=== PATIENT | male | born 1950 | race Caucasian/White ===

== ENCOUNTER 2017-07-02 15:49 | Inpatient (IN) | payer MEDICARE, OTHER ==
[~2017-07-02] VITALS: Ht 167.6 cm; Wt 90.3 kg
--- NOTE | 2017-07-02 00:16 | NUR ---
PRASHANTH CAMPOS NOTES PATIENTS BP CHECKED, NOTED TO BE 161/ 86. PRN HYDRALAZINE 25 MG PO GIVEN. TOLERATED WELL. NO C/O N/V & CHEST PAIN NOTED. WILL RECHECK BP AGAIN. OBSERVING CLOSELY. Addendum: 07/03/17 at 0416 by BENJAMIN BARNETT RN DISREGARD THIS NOTE, WRONG DATE ENTRY.
[~2017-07-02 15:49] MED LIST: ATOR10TA PO; CARV12.52 PO; CLOP75TA2 PO; DOCU-270 PO; HYDR-4076 PO; LOSA50TA21 PO; MECL-102 PO; METF500T4 PO; METO5TAB87 PO; OMEP40CA37 PO; SITA50TA PO; TIOT18CA3 IH
--- NOTE | 2017-07-02 15:55 | NUR ---
AAOX3, [id number] FROM HOME: CHEST PAIN, ABDOMINAL PAIN. NITRO x 3, ASA 325 GIVEN IN FIELD BY EMS. SKIN IS WARM AND DRY. CHEST PAIN RESOLVED DURING ASSESSMENT. RR IS EVEN AND UNLABORED WITH NAD NOTED. PLACED ON MONITOR. WILL CONTIUOUSLY MONITOR THE PATIENT. AWAITING MD FOR EVAL.
[2017-07-02] MEDS ORDERED: MORPHINE SULFATE INJ 4 MG/ML DISP.SYRIN ONE (16:04)
[2017-07-02] MEDS ORDERED: ONDANSETRON HCL/PF 4 MG/2 ML VIAL ONE (16:04)
--- NOTE | 2017-07-02 16:05 | NUR ---
VERBALLY ORDERED BY DR OTT MORPHINE 4MG AND ZOFRAN 4MG IVP R HAND GIVEN.
[2017-07-02 16:09] LABS: BASOPHILS # (AUTO) 0.1 /CMM (0.0-0.2); BASOPHILS % (AUTO) 0.6 % (0.0-2.0); EOSINOPHILS # (AUTO) 0.1 /CMM (0.0-0.7); EOSINOPHILS % (AUTO) 1.5 % (0.0-6.0); HEMATOCRIT 40 % (39-51); LYMPHOCYTES # (AUTO) 1.3 /CMM (0.8-4.8); LYMPHOCYTES % (AUTO) 15.9 % (20.0-44.0); MEAN CORPUSCULAR HEMOGLOBIN 25 PG (26.0-33.0); MEAN CORPUSCULAR HGB CONC 33 g/dl (31.0-36.0); MEAN CORPUSCULAR VOLUME 77 fL (80-96); MONOCYTES # (AUTO) 0.7 /CMM (0.1-1.30); MONOCYTES % (AUTO) 7.7 % (2.0-12.0); NEUTROPHILS # (AUTO) 6.3 /CMM (1.8-8.9); NEUTROPHILS % (AUTO) 74.3 % (43.0-81.0); PLATELET COUNT (AUTO) 185 /CMM (150-450); RDW COEFFICIENT OF VARIATION 15.7 (11.5-15.0); RED BLOOD CELL COUNT(AUTO) 5.15 MIL/uL (4.5-6.0); WHITE BLOOD COUNT (AUTO) 8.5 K/uL (4.3-11.0)
[2017-07-02] MEDS ORDERED: MORPHINE SULFATE INJ 2 MG/ML DISP.SYRIN IV ONE ×2 (16:30→17:30)
[2017-07-02] MEDS ORDERED: ONDANSETRON HCL/PF - ER 4 MG/2 ML VIAL IV ONE (16:30)
[2017-07-02 16:32] LABS: CALCIUM, SERUM 9.5 mg/dL (8.5-10.1); CREATININE 1.5 mg/dL (0.6-1.3); POTASSIUM 4.2 mmol/L (3.5-5.1)
[2017-07-02 16:36] LABS: INR 0.95 (0.87-1.13); PROTHROMBIN TIME 9.9 SECS (9.5-12.7)
[2017-07-02 16:40] LABS: TROPONIN I 0.039 ng/mL (0.00-0.056)
[2017-07-02 16:48] LABS: ALBUMIN 3.9 g/dL (3.4-5.0); BILIRUBIN,DIRECT 0.1 mg/dL (0.0-0.2); BILIRUBIN,TOTAL 0.4 mg/dL (0.2-1.0); TOTAL PROTEIN, SERUM 7.4 g/dL (6.4-8.2)
[2017-07-02] MEDS ORDERED: ASPI-991 PO (17:11)
[2017-07-02] MEDS ORDERED: ACET1TAB12 PO (17:11)
[2017-07-02] MEDS ORDERED: FOLI0.8T23 PO (17:11)
[2017-07-02] MEDS ORDERED: NATE60TA PO (17:11)
[2017-07-02] MEDS ORDERED: MORPHINE SULFATE INJ 10 MG/ML DISP.SYRIN ONE (17:21)
[2017-07-02] MEDS ORDERED: IV NS 0.9% 250 ML IV ONE (17:26)
[2017-07-02] MEDS ORDERED: IOHEXOL-350 100 ML VIAL IV ONE (17:26)
[2017-07-02] MEDS ORDERED: IV NS 0.9% 500 ML BAG IV ONE (17:30)
--- NOTE | 2017-07-02 17:30 | NUR ---
LIVE OUT NANNYMARKETING ADMINISTRATOR NOTES RECEIVED PATIENT FROM ER ON A GURNEY ACCOMPANIED BY 2 NURSES. A & O X 4, TALKATIVE, SPEAKS EQUATORIAL [place] & LITTLE [place]. ABLE TO VERBALIZE HIS NEEDS .ASSISTED TO BED. VS CHECKED & DOCUMENTED. NO SOB, NO PALPITATIONS, DENIED ANY CHEST PAIN AT THIS TIME, BUT C/O ABDOMINAL PAIN. LAST MORPHINE 6 MG WAS GIVEN IN ER ABOUT 2 HRS AGO. ASSISTED WITH POSITIONING IN BED TO MINIMIZE THE PAIN & WAS EFFECTIVE WHILE LAYING ON RIGHT SIDE OF HIS BODY. IV ACCESS TO RIGHT HAND & RAC, INTACT PATENT. NO S/S OF INFECTION NOTED AT IV SITE. ON O2 AT 2LPM VIA NC, IN MODERATE SEMI CASTELAN POSITION. MILD NAUSEA NOTED UPON ADMISSION BUT SUBSIDED WITH POSITIONING TO HIS SIDE. BODY ASSESSMENT DONE, NO SKIN CONCERNS NOTED. ORIENTED PT TO THE UNIT & USE OF CALL LIGHT. ON TELE MONITORING WITH A PACING HEART RATE 66/MINUTE. HAS LEFT CHEST WALL PACEMAKER. INVENTORY BELONGINGS COMPLETED BY GROUNDSKEEPER SUPERVISOR. SAFETY PRECAUTIONS FOR FALL INITIATED. BED IN LOW LOCKED POSITION WITH X2 SIDE RAILS UP. CALL LIGHT WITHIN REACH. WILL CONTINUE TO MONITOR. Addendum: 07/03/17 at 0001 by BENJAMIN BARNETT RN WRONG TIME DOCUMENTED
--- NOTE | 2017-07-02 19:19 | NUR ---
ASSUMED CARE. RECEIVED REPORT FROM AM SHIFT BETH HERNANDEZ. ER MD SPOKE TO DR. MORELAND REGARDING PT ADMISSION. REPORT CALLED TO DIVISION MERCHANDISE MANAGERBETH ALEXANDER. WILL TRANSPORT PT VIA ACLS PROTOCOL.
[2017-07-02 19:30] VITALS: BP 180/93
[2017-07-02] MEDS ORDERED: DEXTROSE 50%-WATER 50 ML DISP.SYRIN IV PRN (19:30)
[2017-07-02] MEDS ORDERED: hydrALAZINE HCL 25 MG TABLET PO PRN (19:30)
[2017-07-02] MEDS ORDERED: MECLIZINE HCL 25 MG TABLET PO PRN (19:30)
[2017-07-02] MEDS ORDERED: MAGNESIUM HYDROXIDE 30 ML UDC PO PRN (19:30)
[2017-07-02] MEDS ORDERED: HYDROCODONE/APAP 10/325MG 1 EA TABLET PO PRN (19:30)
[2017-07-02] MEDS ORDERED: ZOLPIDEM TARTRATE 5 MG TABLET PO PRN (19:30)
[2017-07-02] MEDS ORDERED: ONDANSETRON HCL/PF 4 MG/2 ML VIAL IVP PRN (19:30)
[2017-07-02] MEDS ORDERED: ACETAMINOPHEN 325 MG TABLET PO PRN (19:30)
[2017-07-02] MEDS ORDERED: hydrALAZINE HCL IV 20 MG VIAL IV PRN (19:30)
[2017-07-02] MEDS ORDERED: HYDROCODONE/APAP 5/325MG 1 EACH TABLET PO PRN (19:30)
[2017-07-02] MEDS ORDERED: MAG HYDROX/AL HYDROX/SIMETH 30 ML UDC PO PRN (19:30)
--- NOTE | 2017-07-02 19:30 | NUR ---
REPRESENTATIVENAIL CUTTER NOTES RECEIVED PATIENT FROM ER ON A GURNEY ACCOMPANIED BY 2 NURSES. A & O X 4, TALKATIVE, SPEAKS [place] & LITTLE FRENCH. ABLE TO VERBALIZE HIS NEEDS .ASSISTED TO BED. VS CHECKED & DOCUMENTED. NO SOB, NO PALPITATIONS, DENIED ANY CHEST PAIN AT THIS TIME, BUT C/O ABDOMINAL PAIN. LAST MORPHINE 6 MG WAS GIVEN IN ER ABOUT 2 HRS AGO. ASSISTED WITH POSITIONING IN BED TO MINIMIZE THE PAIN & WAS EFFECTIVE WHILE LAYING ON RIGHT SIDE OF HIS BODY. IV ACCESS TO RIGHT HAND & RAC, INTACT PATENT. NO S/S OF INFECTION NOTED AT IV SITE. ON O2 AT 2LPM VIA NC, IN MODERATE SEMI CASTELAN POSITION. MILD NAUSEA NOTED UPON ADMISSION BUT SUBSIDED WITH POSITIONING TO HIS SIDE. BODY ASSESSMENT DONE, NO SKIN CONCERNS NOTED. ORIENTED PT TO THE UNIT & USE OF CALL LIGHT. ON TELE MONITORING WITH A PACING HEART RATE 66/MINUTE. HAS LEFT CHEST WALL PACEMAKER. INVENTORY BELONGINGS COMPLETED BY GENERAL LABOR. SAFETY PRECAUTIONS FOR FALL INITIATED. BED IN LOW LOCKED POSITION WITH X2 SIDE RAILS UP. CALL LIGHT WITHIN REACH. WILL CONTINUE TO MONITOR.
[2017-07-02 20:30] VITALS: BP 158/76
[2017-07-02 20:43] VITALS: BP 183/93
[2017-07-02] MEDS: CARVEDILOL 12.5 MG TABLET PO SCH (20:56)
[2017-07-02] MEDS: ENOXAPARIN SODIUM 100 MG/ML DISP.SYRIN SQ SCH (20:59)
[2017-07-02] MEDS: ATORVASTATIN 10 MG TABLET PO SCH (21:03)
[2017-07-02] MEDS: NITROGLYCERIN 30 GM TUBE TOP SCH (21:04)
[2017-07-02] MEDS: BLOOD SUGAR DIAGNOSTIC 1 EACH STRIP VI SCH (21:13)
[2017-07-02] MEDS: INSULIN REGULAR, HUMAN 100 UNIT/ML 3 ML VIAL SQ PRN (21:21)
[2017-07-02] MEDS: *INSULIN REGULAR(HUMULIN R)HUM 100 UNIT/ML VIAL SQ PRN (21:26)
[2017-07-02] MEDS: MORPHINE SULFATE INJ 2 MG/ML DISP.SYRIN IV PRN (22:24)
--- NOTE | 2017-07-02 23:01 | NUR ---
FELLING BUCKING SUPERVISOR NOTE DR. MORELAND VISITED THE PATIENT, DID H & P & DECIDED TO CALL THE DAUGHTER TO DISCUSS PLAN OF CARE.
[2017-07-03] VITALS (10 sets, daily range): BP systolic 132–161; BP diastolic 68–86
--- NOTE | 2017-07-03 00:16 | NUR ---
DRAWING IN HAND NOTES PATIENTS BP CHECKED, NOTED TO BE 161/ 86. PRN HYDRALAZINE 25 MG PO GIVEN. TOLERATED WELL. NO C/O N/V & CHEST PAIN NOTED. WILL RECHECK BP AGAIN. OBSERVING CLOSELY.
--- NOTE | 2017-07-03 01:15 | NUR ---
ICE CREAM MACHINE OPERATOR NOTES RECHECKED BP, 156/80. PATIENT SLEEPING INTERMITTENTLY. NO C/O N/V & NO CHEST PAIN. HAS MILD ABDOMINAL PAIN BUT TOLERABLE. INFORMED THE PATIENT TO LET THE NURSE KNOW IF PAIN MEDICINE NEEDED & PT VERBALIZED UNDERSTANDING. WILL CONTINUE TO MONITOR CLOSELY.
[2017-07-03] MEDS: NITROGLYCERIN 30 GM TUBE TOP SCH ×3 (05:18→21:24)
[2017-07-03 06:30] LABS: BASOPHILS % (AUTO) 0.2 % (0.0-2.0); EOSINOPHILS % (AUTO) 0.4 % (0.0-6.0); HEMATOCRIT 39 % (39-51); HEMOGLOBIN 12.7 g/dL (13.5-17.5); LYMPHOCYTES # (AUTO) 1.3 /CMM (0.8-4.8); LYMPHOCYTES % (AUTO) 12.8 % (20.0-44.0); MEAN CORPUSCULAR HEMOGLOBIN 26 PG (26.0-33.0); MEAN CORPUSCULAR HGB CONC 33 g/dl (31.0-36.0); MEAN CORPUSCULAR VOLUME 78 fL (80-96); MONOCYTES # (AUTO) 0.6 /CMM (0.1-1.30); NEUTROPHILS # (AUTO) 8.1 /CMM (1.8-8.9); NEUTROPHILS % (AUTO) 80.6 % (43.0-81.0); PLATELET COUNT (AUTO) 167 /CMM (150-450); RDW COEFFICIENT OF VARIATION 16.9 (11.5-15.0); RED BLOOD CELL COUNT(AUTO) 4.99 MIL/uL (4.5-6.0); WHITE BLOOD COUNT (AUTO) 10.1 K/uL (4.3-11.0)
[2017-07-03] MEDS: BLOOD SUGAR DIAGNOSTIC 1 EACH STRIP VI SCH ×4 (06:32→21:55)
[2017-07-03] MEDS: INSULIN REGULAR, HUMAN 100 UNIT/ML 3 ML VIAL SQ PRN ×3 (06:34→18:01)
[2017-07-03 06:49] LABS: CALCIUM, SERUM 8.9 mg/dL (8.5-10.1); CARBON DIOXIDE 24 mmol/L (21-32); CHLORIDE 104 mmol/L (98-107); CREATININE 1.4 mg/dL (0.6-1.3); GLUCOSE 165 mg/dL (74-106); MAGNESIUM 1.8 mg/dL (1.8-2.4); PHOSPHORUS 4.1 mg/dL (2.5-4.9); POTASSIUM 4.2 mmol/L (3.5-5.1); SODIUM SERUM 138 mmol/L (136-145); UREA NITROGEN, BLOOD 14 mg/dL (7-18)
[2017-07-03 06:58] LABS: CHOLESTEROL 144 mg/dL (<200); LDL 89 mg/dL (0-99); TRIGLYCERIDES 145 mg/dL (30-150)
[2017-07-03 07:00] LABS: HDL CHOLESTEROL < 10 mg/dL (40-60)
--- NOTE | 2017-07-03 07:17 | NUR ---
WELDING PANTOGRAPH OPERATOR CLOSING NOTES PATIENT SLEPT INTERMITTENTLY. ASSESSED FOR PAIN & STATED THAT ABDOMINAL PAIN GOT BETTER, BUT WHILE CHANGING POSITION, PAIN COMES BACK. NO SOB, NO ACUTE DISTRESS NOTED. ON O2 VIA NC @ 2LPM. IN MODERATE SEMI CASTELAN POSITION FOR EASY BREATHING. IV ACCESS TO R HAND & RAC, INTACT PATENT. NO CHEST PAIN NOTED. SIDE RAILS UP X 2. ASSISTED WITH ADL CARE. ALL NEEDS ATTENDED TO & MET. ON TELE MONITORING WITH A PACING AT 68. BED IN LOW LOCKED POSITION. CALL LIGHT WITHIN REACH. CONTINENT OF B & BM. ABLE TO MAKE NEEDS KNOWN. ENDORSED TO AM SHIFT NURSE.
--- NOTE | 2017-07-03 07:30 | NUR ---
STAFFING SPECIALIST OPENING NOTES RECEIVED PATIENT IN BED RESTING, A/O X4, SYRIAC SPEAKING. NO ACUTE DISTRESS, NO SOB NOTED. COMPLAINS OF ABDOMINAL PAIN 9/10 SHARP, PAIN MEDS GIVEN ORDERED. IV SITE INTACT AND PATENT. DR DESAI AT BEDSIDE TALKING TO PATIENT. KEPT PATIENT SAFE AND COMFORTABLE. BED IN LOW POSITION, LOCKED, SIDERAILS UPX2. CALL LIGHT WITHIN REACH. WILL CONTINUE TO MONITOR ACCORDINGLY.
[2017-07-03] MEDS: MORPHINE SULFATE INJ 2 MG/ML DISP.SYRIN IV PRN ×2 (07:35→23:45)
[2017-07-03] MEDS: IPRATROPIUM NEB FS 0.5 MG/2.5 ML AMPUL.NEB NEB SCH ×3 (07:50→20:35)
[2017-07-03 08:09] LABS: TROPONIN I 0.029 ng/mL (0.00-0.056)
[2017-07-03 08:12] LABS: THYROID STIMULATING HORMONE 2.269 uIU/mL (0.358-3.74)
[2017-07-03] MEDS ORDERED: TIOTROPIUM BROMIDE 6 CAP/BOX CAP.W.DEV IH SCH (09:00)
[2017-07-03] MEDS: DOCUSATE SODIUM 100 MG CAPSULE PO SCH (09:59)
[2017-07-03] MEDS: ASPIRIN EC 81 MG TABLET.DR PO SCH (09:59)
[2017-07-03] MEDS: PANTOPRAZOLE 40 MG TABLET.DR PO SCH (10:00)
[2017-07-03] MEDS: CARVEDILOL 12.5 MG TABLET PO SCH ×2 (10:04→21:25)
[2017-07-03] MEDS: LOSARTAN POTASSIUM 50 MG TABLET PO SCH (10:05)
[2017-07-03] MEDS: ENOXAPARIN SODIUM 100 MG/ML DISP.SYRIN SQ SCH ×2 (10:08→21:26)
--- NOTE | 2017-07-03 19:30 | NUR ---
RN NOTES RECEIVED PATIENT IN BED AWAKE, AO X 3, ABLE TO MAKE NEEDS KNOWN. NO ACUTE DISTRESS NOTED. DENIES ANY PAIN AT THIS TIME. IV SITE PATENT, INTACT; FLUSHED. SAFETY REMINDERS GIVEN. ON LOW BED WITH BILATERAL UPPER SIDE RAILS UP. CALL LIGHT WITHIN EASY REACH. WILL CONTINUE TO MONITOR.
--- NOTE | 2017-07-03 19:30 | NUR ---
RN CLOSING NOTES NO CHANGE IN PATIENT'S CONDITION. NO ACUTE DISTRESS, NO SOB NOTED. ALL NEEDS ATTENDED AND PROVIDED. KEPT PATIENT SAFE AND COMFORTABLE. BED IN LOW POSITION, LOCKED, SIDERAILS UP X2. CALL LIGHT WITHIN REACH. ENDORSED TO NIGHT RN FOR EB.
[2017-07-03] MEDS: ATORVASTATIN 10 MG TABLET PO SCH (21:24)
[2017-07-03] MEDS: *INSULIN REGULAR(HUMULIN R)HUM 100 UNIT/ML VIAL SQ PRN (21:26)
[2017-07-04] MEDS: IPRATROPIUM NEB FS 0.5 MG/2.5 ML AMPUL.NEB NEB SCH ×4 (01:30→19:29)
[2017-07-04] MEDS: NITROGLYCERIN 30 GM TUBE TOP SCH ×3 (05:35→21:10)
--- NOTE | 2017-07-04 06:04 | NUR ---
RN NOTES PATIENT ASLEEP, EASILY AROUSABLE. RESPIRATIONS EVEN. NO SIGNS OF PAIN NOTED. DUE MEDS GIVEN WITH NO ASE NOTED. NEEDS ATTENDED. NO SYMPTOMS OF HYPER/HYPOGLYCEMIA. SAFETY PRECAUTIONS AND COMFORT MEASURES IN PLACE. WILL GIVE REPORT TO DAY SHIFT FOR CONTINUITY OF CARE.
[2017-07-04] MEDS: BLOOD SUGAR DIAGNOSTIC 1 EACH STRIP VI SCH ×4 (06:30→21:10)
[2017-07-04] MEDS: INSULIN REGULAR, HUMAN 100 UNIT/ML 3 ML VIAL SQ PRN (06:32)
[2017-07-04] MEDS: PANTOPRAZOLE 40 MG TABLET.DR PO SCH (06:32)
[2017-07-04 08:00] VITALS: BP 149/64
[2017-07-04] MEDS ORDERED: BISACODYL (5 MG) 5 MG TABLET.DR PO PRN (08:00)
[2017-07-04] MEDS ORDERED: PEG 3350/NA SULF,BICARB,CL/KCL 4,000 ML BOTTLE PO ONE (08:00)
--- NOTE | 2017-07-04 08:09 | NUR ---
MS RN OPENING NOTE RECEIVED SBAR REPORT AT THE BEDSIDE. PATIENT IS A/O X4, AWAKE AND COOPERATIVE. PATIENT IS IN BED, BED IS LOCKED IN LOWEST POSITION, SIDE RAILS UP X2. CALL LIGHT WITHIN REACH. EDUCATED THE PATIENT TO CALL FOR ASSISTANCE USING THE CALL LIGHT. PATIENT VERBALIZED FULL UNDERSTANDING OF THE TEACHINGS. DENIES PAIN/DISCOMFORT AT THIS TIME. PRESENTS WITH UNLABORED SPONTANEOUS RESPIRATIONS. CHEST RISING EQUALLY BILATERALLY. SPO2 98% ON 2L. ALL NEEDS ARE ATTENDED TO. WILL CONTINUE TO ASSESS/MONITOR THROUGHOUT THE SHIFT.
--- NOTE | 2017-07-04 08:18 | NUR ---
MS RN NOTE INTERNAL AUDITOR AZA AT THE BEDSIDE. PATIENT REFUSED BLOOD DRAW STATING "I HAVE GIVEN ENOUGH BLOOD, NO MORE. STOP BOTHERING ME AND LET ME REST". RN SPOKE TO THE PATIENT EXPLAINING THE PURPOSE OF THE BLOOD DRAW ANF THE BLOOD TEST. PATIENT REFUSED. WILL NOTIFY .
--- NOTE | 2017-07-04 08:22 | NUR ---
MS RN NOTE DR DESAI AT THE BEDSIDE. AWARE PATIENT REFUSED BLOOD DRAW. PER DR DESAI TITRATE OXYGEN DOWN GRADUALLY AND CONTINUE MONITORING SPO2 ON RA THROUGHOUT THE DAY.
[2017-07-04] MEDS: DOCUSATE SODIUM 100 MG CAPSULE PO SCH (09:11)
[2017-07-04] MEDS: ASPIRIN EC 81 MG TABLET.DR PO SCH (09:11)
[2017-07-04] MEDS: CARVEDILOL 12.5 MG TABLET PO SCH ×2 (09:12→21:10)
[2017-07-04] MEDS: LOSARTAN POTASSIUM 50 MG TABLET PO SCH (09:12)
[2017-07-04] MEDS: ENOXAPARIN SODIUM 100 MG/ML DISP.SYRIN SQ SCH ×2 (09:23→21:00)
--- NOTE | 2017-07-04 09:24 | NUR ---
MS RN NOTE PER DR COLLADO CHANGE PATIENT'S DIET TO CLEAR LIQUIDS FOR UPCOMING EGD/COLONOSCOPY.
[2017-07-04] MEDS: Z GUARD REMEDY 2 OZ OINT TP PRN ×2 (12:32→17:00)
--- NOTE | 2017-07-04 13:00 | NUR ---
MS RN NOTE PATIENT CALLED THE RN USING THE CALL LIGHT TO REPORT BLOOD LICKING FROM THE IV SITE. ON WOOD TREATING INSPECTOR DISCOVERED RAC IV CATHETER BEING DISLODGED. CATHETER WAS REMOVED WITH THE TIP INTACT. OCCLUSIVE DRESSING APPLIED. PATIENT [id number] THE PROCEDURE WILL. PATIENT REPORTED HIS R/HAND IV IS BOTHERING HIM. RN ATTEMPTED TO FLUSH THE IV UNSUCCESSFULLY. R HAND IC CATHETER WAS REMOVED WITH THE CATHETER TIP INTACT. R/HAND SUBCUTANEOUS BULGING IS NOTICED. PHOTO IS TAKEN AND PLACED IN PATIENT'S CHART. PATIENT DENIES PAIN/DISCOMFORT AT EITHER CATHETER SITE. PATIENT AGREED TO NEW IV INSERTION. WILL RETURN WITH NECESSARY SUPPLIES.
--- NOTE | 2017-07-04 13:20 | NUR ---
MS RN NOTE IV CATHETER INSERTED IN PATIENT'S L/HAND. PATIENT TOLERATED PROCEDURE WELL. IV FLUSHED WITH SALINE.
--- NOTE | 2017-07-04 13:50 | NUR ---
MS RN NOTE PATIENT STATED HE THINK HIS BLOOD GLUCOSE MIGHT BE ELEVATED AND ASKED FOR BG CHECK. BG MONITORING REVEALED BG 199 MG/DL. PATIENT JUST ATE AND DRANK JUICE. NO ACTION IS TAKEN AT THIS TIME. WILL MONITOR AGAIN AT 1730 SCHEDULED.
[2017-07-04 16:00] VITALS: BP 148/79
[2017-07-04] MEDS: *INSULIN REGULAR(HUMULIN R)HUM 100 UNIT/ML VIAL SQ PRN (17:06)
--- NOTE | 2017-07-04 17:06 | NUR ---
MS RN NOTE PATIENT REMINDED TO DRINK GO LIGHTLY. PATIENT STATED UNDERSTANDING OF THE TEACHING
--- NOTE | 2017-07-04 19:27 | NUR ---
MS RN CLOSING NOTE GAVE SBAR REPORTTO SOFTWARE SECURITY CONSULTANT. PATIENT IS A/O X4, AWAKE AND COOPERATIVE. PATIENT IS IN BED, BED IS LOCKED IN LOWEST POSITION, SIDE RAILS UP X2. CALL LIGHT WITHIN REACH. EDUCATED THE PATIENT TO CALL FOR ASSISTANCE USING THE CALL LIGHT. PATIENT VERBALIZED FULL UNDERSTANDING OF THE TEACHINGS. DENIES PAIN/DISCOMFORT AT THIS TIME. PRESENTS WITH UNLABORED SPONTANEOUS RESPIRATIONS. CHEST RISING EQUALLY BILATERALLY. SPO2 97% ON 2L. ALL NEEDS ARE ATTENDED TO. ENDORSED TO SOFTWARE SECURITY CONSULTANT [place].
--- NOTE | 2017-07-04 19:29 | NUR ---
RT PT REFUSED TX. RN AWARE. NO SOB OR DISTRESS NOTED AT THIS TIME.
--- NOTE | 2017-07-04 19:35 | NUR ---
MS CAMPOS INITIAL NOTES Addendum: 07/04/17 at 1942 by SUSAN SEN PT IS AT BED SIDE SITTING IN CHAIR. NO SIGNS OF SOB OR DISTRESS. COLONOSCOPY PREP AT BED SIDE ABOUT HALF WAY THROUGH. REMINDED THE PT ABOUT THE IMPORTANCE OF COMPLETING THE PREP. CONSENTS ARE SIGNED AND IN THE CHART. PT REFUSED BREATHING TX, EDUCATION WAS GIVEN BUT PT REFUSED. WILL BE NPO AT MIDNIGHT. BED IS IN LOW AND LOCKED POSITION, CALL LIGHT WITHIN REACH. WILL CONTINUE TO MONITOR PT
[2017-07-04 20:00] VITALS: BP 149/84
--- NOTE | 2017-07-04 20:49 | NUR ---
RECEIVED ORDER FROM DR MORELAND TO HOLD LOVENOX FOR EGD AND COLONOSCOPY
[2017-07-04] MEDS: ATORVASTATIN 10 MG TABLET PO SCH (21:09)
[2017-07-04 22:02] VITALS: BP 149/84
[2017-07-04] MEDS ORDERED: MAGNESIUM CITRATE 296 ML BOTTLE ONE (22:21)
[2017-07-04] MEDS ORDERED: NA PHOS,M-B/NA PHOS,DI-BA 1 EA ENEMA RC ONE (22:22)
[2017-07-04] MEDS ORDERED: MAGNESIUM CITRATE 296 ML BOTTLE PO ONE (22:30)
[2017-07-04] MEDS ORDERED: NA PHOS,M-B/NA PHOS,DI-BA 1 EA ENEMA RC PRN (22:30)
--- NOTE | 2017-07-04 22:35 | NUR ---
SPOKE WITH DR COLLADO REGARDING PT COLONOSCOPY PREP. PT IS REFUSING TO DRINK ANYMORE. MAG CITRATE WAS ORDERED AND TO BE GIVEN NOW THEN A FLEET ENEMA PRIOR TO MIDNIGHT. IF THAT DOESNT CLEAR THE PATIENT THEN THE PROCEDURE WILL BE HELD AND RESCHEDULED
[2017-07-05] MEDS: IPRATROPIUM NEB FS 0.5 MG/2.5 ML AMPUL.NEB NEB SCH ×5 (01:30→20:07)
[2017-07-05] MEDS: MORPHINE SULFATE INJ 2 MG/ML DISP.SYRIN IV PRN (02:20)
[2017-07-05] MEDS: NITROGLYCERIN 30 GM TUBE TOP SCH ×3 (05:00→21:22)
[2017-07-05] MEDS: BLOOD SUGAR DIAGNOSTIC 1 EACH STRIP VI SCH ×4 (06:03→21:21)
--- NOTE | 2017-07-05 06:17 | NUR ---
MS RN NOTES CONTACTED DR COLLADO TO GIVE AN UPDATE ON COLONOSCOPY PREP. SAID TO KEEP PT NPO AND HE WILL COME AND TALK TO THE PATIENT ON THE FLOOR. WILL ENDORSE TO DAY SHIFT
--- NOTE | 2017-07-05 06:38 | NUR ---
MS RN CLOSING NOTES PT IS IN BED SLEEPING, EASILY AROUSED. NO SIGNS OF SOB OR DISTRESS. IV ACCESS IS INTACT AND PATENT. COLONOSCOPY SCHEDULED FOR 9AM PENDING TATOYAN COMING TO THE FLOOR TO TALK TO PT. BED IS IN LOW AND LOCKED POSITION, CALL LIGHT WITHIN REACH. WILL ENDORSE TO DAY SHIFT
[2017-07-05] MEDS: PANTOPRAZOLE 40 MG TABLET.DR PO SCH (07:30)
--- NOTE | 2017-07-05 07:57 | NUR ---
RN NOTES RECEIVED PT. PT IS STABLE AND SLEEPING IN BED. A/OX4. NO S/S OF RESPIRATORY DISTRESS OR SOB. PT DOES NOT APPEAR TO BE IN PAIN AT THIS TIME. PT IS NPO SINCE MIDNIGHT FOR EGD & COLONOSCOPY BY DR. COLLADO. DR. COLLADO TO SEE PT IN AM DUE TO NON-COMPLIANCE WITH PRE-OPERATIVE INTERVENTIONS. PER SETTER HELPER REPORT, PT NON-COMPLIANT WITH MONITORING OF BM. LAST RECORDED BM ON 07/05 AT 0100, LOOSE/WATERY STOOL. SAFETY MEASURES IN PLACE , CALL LIGHT WITHIN REACH. WILL CONTINUE TO MONITOR.
[2017-07-05 08:00] VITALS: BP 177/88
[2017-07-05] MEDS: ENOXAPARIN SODIUM 100 MG/ML DISP.SYRIN SQ SCH ×2 (08:56→21:23)
[2017-07-05] MEDS: DOCUSATE SODIUM 100 MG CAPSULE PO SCH (09:00)
[2017-07-05] MEDS: CARVEDILOL 12.5 MG TABLET PO SCH ×2 (09:00→21:21)
[2017-07-05] MEDS: ASPIRIN EC 81 MG TABLET.DR PO SCH (09:00)
[2017-07-05] MEDS: LOSARTAN POTASSIUM 50 MG TABLET PO SCH (09:00)
--- NOTE | 2017-07-05 09:13 | NUR ---
RN NOTES PT TAKEN FOR EGD/COLONOSCOPY. AM LOVENOX HELD PRIOR TO SX.
[2017-07-05 09:22] VITALS: BP 177/88
[2017-07-05] MEDS ORDERED: IV LR 1000 ML 1,000 ML IV PRN (11:00)
[2017-07-05] MEDS: *INSULIN REGULAR(HUMULIN R)HUM 100 UNIT/ML VIAL SQ PRN ×3 (12:24→21:33)
[2017-07-05 16:00] VITALS: BP 161/91
--- NOTE | 2017-07-05 17:12 | NUR ---
RN NOTES PRN HYDRALAZINE GIVEN FOR HIGH BP. PT REFUSES PO MEDICATION AND REQUESTS IV ROUTE.
--- NOTE | 2017-07-05 18:38 | NUR ---
RN CLOSING NOTES PT AWAKE AND LYING IN BED, AT BEDSIDE. NO S/S OF DISTRESS OR SOB. NO C/O PAIN AT THIS TIME. PT S/P EGD TODAY 07/05/17. PT BP ELEVATED DUE TO AM MEDICATIONS BEING HELD, PER NPO DX. PRN HYDRALAZINE GIVEN VIA IVP. ALL PT NEEDS ANTICIPATED AND MET, SAFETY MEASURES IN PLACE, BED PLACED TO LOWEST POSITION. WILL ENDORSE TO QUALITY CONTROL ANALYST FOR EB.
--- NOTE | 2017-07-05 19:44 | NUR ---
MS RN INITIAL NOTES PT IS IN BED SLEEPING, EASILY AROUSED. ABLE TO MAKE NEEDS KNOWN. NO SIGNS OF SOB OR DISTRESS. BREATHING EVENLY AND UNLABORED ON ROOM AIR. BED IS IN LOW AND LOCKED POSITION, CALL LIGHT WITHIN REACH. WILL CONTINUE TO MONITOR PT
[2017-07-05 20:00] VITALS: BP 150/77
--- NOTE | 2017-07-05 20:00 | NUR ---
MS RN NOTES PT IS REFUSING IV FLUIDS. EDUCATION WAS GIVEN. ENCOURAGED PO INTAKE
[2017-07-05] MEDS: ATORVASTATIN 10 MG TABLET PO SCH (21:21)
[2017-07-05 22:17] VITALS: BP 150/77
[2017-07-06] MEDS: IPRATROPIUM NEB FS 0.5 MG/2.5 ML AMPUL.NEB NEB SCH ×2 (01:30→09:39)
[2017-07-06] MEDS: MORPHINE SULFATE INJ 2 MG/ML DISP.SYRIN IV PRN (02:48)
[2017-07-06] MEDS: INSULIN REGULAR, HUMAN 100 UNIT/ML 3 ML VIAL SQ PRN (06:11)
[2017-07-06] MEDS: NITROGLYCERIN 30 GM TUBE TOP SCH (06:13)
--- NOTE | 2017-07-06 06:56 | NUR ---
MS RN CLOSING NOTES PT IS SITTING IN CHAIR AT BEDSIDE. NO SIGNS OF SOB OR DISTRESS, BREATHING EVENLY AND UNLABORED. ALL NEEDS WERE ANTICIPATED AND MET. WILL ENDORSE TO DAY SHIFT
--- NOTE | 2017-07-06 07:20 | NUR ---
ms rn initial notes Received patient in bed, asleep, head of bed elevated, no SOB or distress noted. on room air and tolerated well, 02 saturation of 99%. IV intact and patent, patient refused IV hydration. Kept patient clean and comfortable in bed, call light with in patient reach, will continue to monitor accordingly.
[2017-07-06] MEDS: BLOOD SUGAR DIAGNOSTIC 1 EACH STRIP VI SCH (07:49)
[2017-07-06 08:00] VITALS: BP 142/105
[2017-07-06] MEDS: DOCUSATE SODIUM 100 MG CAPSULE PO SCH (08:28)
[2017-07-06] MEDS: ASPIRIN EC 81 MG TABLET.DR PO SCH (08:31)
[2017-07-06] MEDS: LOSARTAN POTASSIUM 50 MG TABLET PO SCH (08:31)
[2017-07-06 08:32] VITALS: BP 142/105
[2017-07-06] MEDS: PANTOPRAZOLE 40 MG TABLET.DR PO SCH (08:32)
[2017-07-06] MEDS: CARVEDILOL 12.5 MG TABLET PO SCH (08:32)
[2017-07-06] MEDS: ENOXAPARIN SODIUM 100 MG/ML DISP.SYRIN SQ SCH (08:33)
--- NOTE | 2017-07-06 09:57 | NUR ---
ms rn notes Stacy KILLIAN on site and informed regarding patient wants his diet to upgrade and ordered to discontinue previous diet order and change it to regular 2g sodium. All orders carried out and noted. Will continue to monitor accordingly.
[2017-07-06] MEDS ORDERED: Rivaroxaban PO (10:10)
[2017-07-06] MEDS ORDERED: LIPA1CAP27 PO (10:10)
[2017-07-06] MEDS ORDERED: RIVAROXABAN 15 MG TABLET PO SCH (10:30)
--- NOTE | 2017-07-06 11:30 | NUR ---
ms manufacturing engineering intern notes Discharge instructions given to patient and able to understand instructions. prescription given and health education and teaching rendered. informed patient to follow up with primary health care physician in 1-2 weeks and amenable. Discontinued IV access and pressured applied to prevent bleeding. Skin is intact. Pneumonia and flu vaccine offered and patient refused, explained the risk and benefits x 3, and still refused vaccinations. patient left via ambulatory accompanied by RN assigned, left in stable condition, no complaint of pain or discomfort. Vital signs checked and recorded. MD and charge nurse aware.
== END 2017-07-06 11:30 | disposition home or self-care (01) | DRG 391 ==
LOC: ER 15:50 → TELE 18:39 → MED 07-03 08:36
PROVIDERS: ADMIT Nurse Practitioner Acute Care; ATTEND Nurse Practitioner Acute Care
PROC: 0DB78ZX Excision of Stomach, Pylorus, Via Natural or Artificial Opening Endoscopic, Diagnostic (ICD-10-PCS; principal; 2017-07-05 09:26)
DX: K21.0 Gastro-esophageal reflux disease with esophagitis (principal); I26.99 Other pulmonary embolism without acute cor pulmonale; I13.0 Hypertensive heart and chronic kidney disease with heart failure and stage 1 through stage 4 chronic kidney disease, or unspecified chronic kidney disease; I50.32 Chronic diastolic (congestive) heart failure; K29.70 Gastritis, unspecified, without bleeding; E11.22 Type 2 diabetes mellitus with diabetic chronic kidney disease; E11.51 Type 2 diabetes mellitus with diabetic peripheral angiopathy without gangrene; E66.9 Obesity, unspecified; F17.210 Nicotine dependence, cigarettes, uncomplicated; I25.10 Atherosclerotic heart disease of native coronary artery without angina pectoris; J44.9 Chronic obstructive pulmonary disease, unspecified; N18.9 Chronic kidney disease, unspecified; Z79.84 Long term (current) use of oral hypoglycemic drugs; Z86.010 Personal history of colon polyps; Z95.810 Presence of automatic (implantable) cardiac defibrillator; Z95.1 Presence of aortocoronary bypass graft; Z86.79 Personal history of other diseases of the circulatory system; Z68.32 Body mass index [BMI] 32.0-32.9, adult; K44.9 Diaphragmatic hernia without obstruction or gangrene; Z79.82 Long term (current) use of aspirin; Z91.19 Patient's noncompliance with other medical treatment and regimen
CPT/HCPCS: 36415; 71010-TC; 80048-TC; 80061-TC; 80076-TC; 82962-TC; 83735-TC; 83880; 84100-TC; 84439-TC; 84443-TC; 84484-TC; 85025-TC; 85730-TC; 88305-TC; 88313-TC; 88342; 93307-TC; 93970-TC; A4606; J0360; J1650; J1815; J2270; J2405; J3490; J7040; J7050; J7120; Q9967; Z7610

== ENCOUNTER 2017-07-29 05:25 | Inpatient (IN) | payer MEDICARE, OTHER ==
[~2017-07-29 05:25] MED LIST changes: +ACET1TAB12 PO; +ASPI-991 PO; -CLOP75TA2 PO; +FOLI0.8T23 PO; +LIPA1CAP27 PO; -METF500T4 PO; -METO5TAB87 PO; +NATE60TA PO; +Rivaroxaban PO
[2017-07-29] MEDS ORDERED: CEFAZOLIN SODIUM/DEXTROSE,ISO 50 ML IV ONE (06:10)
[2017-07-29 06:29] LABS: BASOPHILS % (AUTO) 0.6 % (0.0-2.0); EOSINOPHILS # (AUTO) 0.1 /CMM (0.0-0.7); HEMATOCRIT 34 % (39-51); HEMOGLOBIN 11.1 g/dL (13.5-17.5); LYMPHOCYTES # (AUTO) 1.4 /CMM (0.8-4.8); LYMPHOCYTES % (AUTO) 16.1 % (20.0-44.0); MEAN CORPUSCULAR HEMOGLOBIN 26 PG (26.0-33.0); MEAN CORPUSCULAR HGB CONC 33 g/dl (31.0-36.0); MEAN CORPUSCULAR VOLUME 78 fL (80-96); MONOCYTES # (AUTO) 0.7 /CMM (0.1-1.30); NEUTROPHILS # (AUTO) 6.3 /CMM (1.8-8.9); NEUTROPHILS % (AUTO) 74.3 % (43.0-81.0); PLATELET COUNT (AUTO) 140 /CMM (150-450); RDW COEFFICIENT OF VARIATION 16.5 (11.5-15.0); RED BLOOD CELL COUNT(AUTO) 4.34 MIL/uL (4.5-6.0); WHITE BLOOD COUNT (AUTO) 8.5 K/uL (4.3-11.0)
[2017-07-29 06:32] LABS: CALCIUM, SERUM 9.6 mg/dL (8.5-10.1); CREATININE 1.5 mg/dL (0.6-1.3); POTASSIUM 4.5 mmol/L (3.5-5.1)
[2017-07-29] MEDS ORDERED: ANESTHESIA TRAY IN PYXIS 1 EA TRAY MC ONE (06:44)
[2017-07-29] MEDS ORDERED: BUPIVACAINE 0.5 % PF 150 MG/30 ML VIAL ONE (06:45)
[2017-07-29] MEDS ORDERED: LIDOCAINE 1% INJ 50 ML MDV IJ ONE (06:45)
[2017-07-29 06:48] LABS: INR 1.03 (0.87-1.13); PROTHROMBIN TIME 10.7 SECS (9.5-12.7)
[2017-07-29] MEDS ORDERED: ROCURONIUM BROMIDE 50 MG/5 ML ONE (07:25)
[2017-07-29] MEDS ORDERED: SUCCINYLCHOLINE CHLORIDE 20 MG/ML VIAL ONE (07:25)
[2017-07-29] MEDS ORDERED: HYDROMORPHONE INJ 2 MG/ML DISP.SYRIN ONE (07:25)
[2017-07-29] MEDS ORDERED: HYDROMORPHONE 1 MG/1 ML DISP.SYRIN ONE (09:39)
--- NOTE | 2017-07-29 10:30 | NUR ---
MS/PRE SALES SYSTEMS ENGINEER PATIENT ADMITTED FROM OR S/P [facility], TOLERATED WELL. NOTED ABDOMEN WITH 4 STITCHES WITH DRESSING ON. A/O X 4. NO SIGNS OF ACUTE DISTRESS. COMPLAIN OF MILD PAIN TO STITCHES SITE. DUE MEDS NEURONTIN, TYLENOL AND MOTRIN GIVEN ORDERED TOLERATED WELL. ON CLEAR LIQUIDS DIET AND ADVANCED TOLERATED. ALL NEEDS ATTENDED TO. SPOKE WITH DR GONZALEZ AND MADE AWARE REGARDING PATIENT ADMISSION AND PER DR COLLADO TO DC TODAY AFTER LUNCH. PER DR GONZALEZ NO NEED TO RECONCILE HOME MEDS AT THIS TIME SINCE PATIENT WILL BE DC AFTER LUNCH. ALL NEEDS ATTENDED TO. CALL LIGHT WITHIN REACH. WILL CONTINUE TO MONITOR TO ENSURE SAFETY.
[2017-07-29] MEDS ORDERED: HYDROCODONE/APAP 10/325MG 1 EA TABLET PO PRN (11:00)
[2017-07-29] MEDS ORDERED: GABAPENTIN 300 MG CAPSULE PO ONE (11:00)
[2017-07-29] MEDS ORDERED: IBUPROFEN 400 MG TABLET PO ONE (11:00)
[2017-07-29] MEDS ORDERED: ONDANSETRON HCL/PF 4 MG/2 ML VIAL IVP PRN (11:00)
[2017-07-29] MEDS ORDERED: ACETAMINOPHEN 325 MG TABLET PO ONE (11:00)
[2017-07-29] MEDS ORDERED: HYDROMORPHONE INJ 2 MG/ML DISP.SYRIN IV PRN (11:00)
[2017-07-29] MEDS ORDERED: IV LR 1000 ML 1,000 ML IV PRN (11:30)
--- NOTE | 2017-07-29 16:07 | NUR ---
MS/MILL RECORDER NOTE PATIENT DISCHARGE HOME IN STABLE CONDITION. A/O X 4. NO SIGNS OF ACUTE DISTRESS. NO COMPLAIN OF PAIN OR DISCOMFORT. DISCHARGE INSTRUCTIONS AND EDUCATION PROVIDED TO PATIENT AND DAUGHTER. VERBALIZED UNDERSTANDING OF TEACHING. ALSO MADE AWARE TO FOLLOW UP WITH DR COLLADO WITHIN A WEEK. DR OCLLADO NUMBER PROVIDE. PRESCRIPTIONS FAXED TO [facility] AT FAX # [phone]. CONFIRMED WITH JOSE MANUEL FROM PHARMACY. ALL NEEDS ATTENDED TO. IV LINE AND NAME BAND REMOVED. LEFT VIA PRIVATE CAR IN STABLE CONDITION ACCOMPANIED BY DAUGHTER.
== END 2017-07-29 16:00 | disposition home or self-care (01) | DRG 419 ==
LOC: DS 05:25 → MED 10:39
PROVIDERS: ADMIT Internal Medicine; ATTEND Surgery
PROC: 0DNU4ZZ Release Omentum, Percutaneous Endoscopic Approach (ICD-10-PCS; 2017-07-29)
PROC: 0DN84ZZ Release Small Intestine, Percutaneous Endoscopic Approach (ICD-10-PCS; 2017-07-29)
PROC: 0FT44ZZ Resection of Gallbladder, Percutaneous Endoscopic Approach (ICD-10-PCS; principal; 2017-07-29 07:30)
DX: K80.10 Calculus of gallbladder with chronic cholecystitis without obstruction (principal); E11.9 Type 2 diabetes mellitus without complications; F17.210 Nicotine dependence, cigarettes, uncomplicated; I10 Essential (primary) hypertension; Z86.010 Personal history of colon polyps; Z95.1 Presence of aortocoronary bypass graft; K66.0 Peritoneal adhesions (postprocedural) (postinfection); G89.29 Other chronic pain
CPT/HCPCS: 36415; 80048-TC; 82962-TC; 85025-TC; 85610-TC; 85730-TC; 88304-TC; 88305-TC; A6402; J0330; J0690; J1170; J3490; J7120

== ENCOUNTER 2017-09-15 10:21 | Inpatient (IN) | payer MEDICARE, OTHER ==
[~2017-09-15] VITALS: Ht 175.3 cm; Wt 84.4 kg
[~2017-09-15 10:21] MED LIST changes: +ASPI-1152 PO; -ASPI-991 PO
--- NOTE | 2017-09-15 10:21 | NUR ---
[id number] FROM HOME FOR CHEST PAIN AND SOB X 1 DAY, [id number], NITRO X2 GIVEN BY EMS
[2017-09-15] MEDS ORDERED: FUROSEMIDE 40 MG/4 ML VIAL IV ONE (10:30)
--- NOTE | 2017-09-15 10:34 | NUR ---
CARDIO ON-CALL,DR BURNS, PAGED
[2017-09-15] MEDS ORDERED: FUROSEMIDE 40 MG/4 ML VIAL ONE (10:51)
[2017-09-15 10:55] LABS: BASOPHILS % (AUTO) 0.4 % (0.0-2.0); EOSINOPHILS # (AUTO) 0.1 /CMM (0.0-0.7); EOSINOPHILS % (AUTO) 0.8 % (0.0-6.0); LYMPHOCYTES % (AUTO) 13.1 % (20.0-44.0); MEAN CORPUSCULAR HEMOGLOBIN 24 PG (26.0-33.0); MEAN CORPUSCULAR HGB CONC 33 g/dl (31.0-36.0); MEAN CORPUSCULAR VOLUME 74 fL (80-96); MONOCYTES # (AUTO) 0.6 /CMM (0.1-1.30); MONOCYTES % (AUTO) 8.4 % (2.0-12.0); NEUTROPHILS % (AUTO) 77.3 % (43.0-81.0); PLATELET COUNT (AUTO) 137 /CMM (150-450); RDW COEFFICIENT OF VARIATION 15.3 (11.5-15.0); RED BLOOD CELL COUNT(AUTO) 2.45 MIL/uL (4.5-6.0); WHITE BLOOD COUNT (AUTO) 7.7 K/uL (4.3-11.0)
[2017-09-15 11:08] LABS: INR 1.18 (0.87-1.13); PROTHROMBIN TIME 12.3 SECS (9.5-12.7)
[2017-09-15 11:11] LABS: CREATININE 1.5 mg/dL (0.6-1.3); POTASSIUM 4.8 mmol/L (3.5-5.1)
[2017-09-15 11:12] LABS: HEMATOCRIT 18 % (39-51); HEMOGLOBIN 5.9 g/dL (13.5-17.5)
[2017-09-15 11:25] LABS: BILIRUBIN,DIRECT 0.1 mg/dL (0.0-0.2); BILIRUBIN,TOTAL 0.3 mg/dL (0.2-1.0); TOTAL PROTEIN, SERUM 6.3 g/dL (6.4-8.2); TROPONIN I 0.445 ng/mL (0.00-0.056)
--- NOTE | 2017-09-15 11:33 | NUR ---
DR MELENDEZ WAS PAGED
[2017-09-15 12:10] LABS: EOSINOPHILS % (MANUAL) 1 % (0-4); LYMPHOCYTES % (MANUAL) 7 % (16-48); MONOCYTES % (MANUAL) 9 % (0-11.0); NEUTROPHILS % (MANUAL) 83 (42-76)
[2017-09-15] MEDS ORDERED: GABA-534 PO (12:14)
[2017-09-15] MEDS ORDERED: LINA145C PO (12:14)
[2017-09-15] MEDS ORDERED: RIVA10TA PO (12:14)
[2017-09-15] MEDS ORDERED: MELA10CA PO (12:14)
[2017-09-15] MEDS ORDERED: ATOR40TA PO (12:14)
[2017-09-15] MEDS ORDERED: SENN-167 PO (12:14)
[2017-09-15] MEDS ORDERED: ONDANSETRON HCL/PF 4 MG/2 ML VIAL IVP PRN (12:30)
[2017-09-15] MEDS ORDERED: DEXTROSE 50%-WATER 50 ML DISP.SYRIN IV PRN (12:30)
[2017-09-15] MEDS ORDERED: MORPHINE SULFATE INJ 4 MG/ML DISP.SYRIN IV STA ×2 (12:40→15:38)
[2017-09-15] MEDS ORDERED: MORPHINE SULFATE INJ 4 MG/ML DISP.SYRIN ONE ×2 (12:42→15:39)
--- NOTE | 2017-09-15 13:56 | NUR ---
VERIFIED BLOOD TYPE WITH JULIETA DIAZ RN
--- NOTE | 2017-09-15 14:12 | NUR ---
DR WARE WAS PAGED FOR VASCULAR SURGERY CONSULT
--- NOTE | 2017-09-15 14:54 | NUR ---
PT TAKEN TO CT
[2017-09-15] MEDS ORDERED: CT SWABBABLE VALVE TRANS SET 1 EA INFUS.SET MC ONE (14:57)
[2017-09-15] MEDS ORDERED: IOHEXOL-350 100 ML VIAL IV ONE (14:57)
[2017-09-15] MEDS ORDERED: IV NS 0.9% 250 ML IV ONE (14:58)
--- NOTE | 2017-09-15 16:08 | NUR ---
DR WARE WAS PAGED FOR VASCUALR CONSULT
[2017-09-15 17:30] VITALS: BP 132/76
--- NOTE | 2017-09-15 17:30 | NUR ---
TD RN OPENING RECEIVED PATIENT A/OX4 MALAGASY/CITIZEN OF [place] SPEAKING. PATIENT STATES HIS BREATHING IS "MUCH BETTER" AND CHEST PAIN IS "ALMOST GONE AND GOOD NOW" PATIENT IV SITE INTACT AND PATENT. PATIENT UPDATED AND EDUCATED ON ADMISSION AND STATES UNDERSTANDING. TELE APPLIED AND VS BEING TAKEN. PATIENT NEEDS IN REACH. BED LOWERED AND LOCKED, RAILS UPX3 FOR SAFETY AND BED ALARM ON. CALL LIGHT IN REACH. PATIENT HAS NO SOB, DIFFICULTY BREATHING AT THIS TIME. PALE LOOKING. WILL CALL MD FOR CLARIFICATION ORDERS
--- NOTE | 2017-09-15 17:44 | NUR ---
PLANNING MANAGEMENT IT SPECIALIST NOTES SPOKE WITH DR MELENDEZ AND PER MD PATIENT IS TO BE CLIVE STATUS, GIVE ANOTHER UNIT OF PRBC AND THEN CHECK CBC POST TRANSFUSION. DR BURNS AND DR WARE TO BE CONSULTED. NOTIFIED MD OF NEW TROPONIN OF 0.540.
[2017-09-15 18:00] VITALS: BP 132/76
[2017-09-15] MEDS: BLOOD SUGAR DIAGNOSTIC 1 EACH STRIP VI SCH ×2 (18:06→22:34)
[2017-09-15] MEDS: INSULIN REGULAR, HUMAN 100 UNIT/ML 3 ML VIAL SQ PRN (18:10)
[2017-09-15] MEDS: NITROGLYCERIN 0.4 MG/TAB BOTTLE SL PRN ×3 (18:44→18:54)
--- NOTE | 2017-09-15 18:45 | NUR ---
TD RN NOTES PATIENT C/O CHEST PAIN. ORDERED NITRO SL GIVEN. WILL RECHECK 5 MINUTES
[2017-09-15] MEDS: MORPHINE SULFATE INJ 4 MG/ML DISP.SYRIN IV PRN (19:00)
--- NOTE | 2017-09-15 19:01 | NUR ---
TD RN NOTES X3 NITRO AND PATIENT STATES NO RELIEF IN CHEST PAIN. MORPHINE GIVEN PER MD ORDER
--- NOTE | 2017-09-15 19:10 | NUR ---
DAYRON RN CLOSING PATIENT CARE ENDORSED TO [place] FOR EB.
--- NOTE | 2017-09-15 19:28 | NUR ---
TD RN NOTES PATIENT STATES CHEST PAIN DIMINISHED AND HE FEELS BETTER
[2017-09-15 20:00] VITALS: BP 141/83
[2017-09-15] MEDS ORDERED: FUROSEMIDE 20 MG/2 ML VIAL ONE (21:51)
[2017-09-15] MEDS ORDERED: ATORVASTATIN 40 MG TABLET ONE (21:51)
[2017-09-15] MEDS ORDERED: FUROSEMIDE 20 MG/2 ML VIAL IV ONE (22:00)
[2017-09-15] MEDS ORDERED: FUROSEMIDE 20 MG/2 ML VIAL IV SCH (22:00)
[2017-09-15] MEDS: ATORVASTATIN 40 MG TABLET PO SCH (22:01)
[2017-09-15] MEDS: *INSULIN REGULAR(HUMULIN R)HUM 100 UNIT/ML VIAL SQ PRN (22:36)
[2017-09-15 23:33] LABS: APPEARANCE,URINE CLEAR (CLEAR); BILIRUBIN,URINE NEGATIVE (NEGATIVE); BLOOD, URINE NEGATIVE Ery/uL (NEGATIVE); COLOR,URINE YELLOW (YELLOW); KETONES,URINE NEGATIVE (NEGATIVE); LEUKOCYTE ESTERASE ,URINE NEGATIVE (NEGATIVE); NITRITE, URINE NEGATIVE (NEGATIVE); PROTEIN,URINE NEGATIVE (NEGATIVE); UGLUCOSE NEGATIVE (NEGATIVE); UROBILINOGEN,URINE 0.2 EU/dL (0.2)
--- NOTE | 2017-09-15 23:35 | NUR ---
TELE-TD/ANDROID PLATFORM DEVELOPER CALL PLACED TO DR. MORELAND TO REPORT CRITICAL TROP 1.740 AWAITING CALL BACK. WILL CONTINUE TO MONITOR.
[2017-09-16] VITALS (37 sets, daily range): BP systolic 105–164; BP diastolic 40–88
--- NOTE | 2017-09-16 00:13 | NUR ---
TELE-TD/MIDDLE SCHOOL LIBRARIAN TROP REPORTED TO DR. MORELAND. NO NEW ORDERS.
[2017-09-16] MEDS: MORPHINE SULFATE INJ 4 MG/ML DISP.SYRIN IV PRN ×4 (02:06→23:32)
[2017-09-16] MEDS: NITROGLYCERIN 0.4 MG/TAB BOTTLE SL PRN (03:56)
--- NOTE | 2017-09-16 07:23 | NUR ---
TD RN OPENING RECEIVED PATIENT A/OX4 STATES CHEST PAIN IS HARDLY CONTROLLED WITH PRN MORPHINE. FROM A 9-10 PRIOR TO MORPHINE IS ONLY GOES DOWN TO 5-6 AND PAIN CONTROL ONLY LASTS FOR ABOUT AN HOUR. PATIENT STATES SLIGHT SOB AT THIS TIME. SLIGHTLY DIAPHORETIC. PENDING UPDATED CBC RESULTS. IV SITE CLEAN DRY AND INTACT. ALL NEEDS MET. TELE MONITORING. BED LOWERED AND LOCKED, RAILS UPX3 FOR SAFETY AND WILL ROUND PRN NEEDED
[2017-09-16 07:25] LABS: CALCIUM, SERUM 9.4 mg/dL (8.5-10.1); CREATININE 1.5 mg/dL (0.6-1.3); MAGNESIUM 1.9 mg/dL (1.8-2.4); PHOSPHORUS 4.3 mg/dL (2.5-4.9); POTASSIUM 3.8 mmol/L (3.5-5.1)
[2017-09-16 07:26] LABS: BASOPHILS % (AUTO) 0.4 % (0.0-2.0); EOSINOPHILS # (AUTO) 0.1 /CMM (0.0-0.7); EOSINOPHILS % (AUTO) 1.1 % (0.0-6.0); HEMATOCRIT 26 % (39-51); HEMOGLOBIN 8.5 g/dL (13.5-17.5); LYMPHOCYTES # (AUTO) 1.2 /CMM (0.8-4.8); LYMPHOCYTES % (AUTO) 12.2 % (20.0-44.0); MEAN CORPUSCULAR HEMOGLOBIN 25 PG (26.0-33.0); MEAN CORPUSCULAR HGB CONC 32 g/dl (31.0-36.0); MEAN CORPUSCULAR VOLUME 77 fL (80-96); MONOCYTES # (AUTO) 0.9 /CMM (0.1-1.30); MONOCYTES % (AUTO) 9.7 % (2.0-12.0); NEUTROPHILS # (AUTO) 7.5 /CMM (1.8-8.9); NEUTROPHILS % (AUTO) 76.6 % (43.0-81.0); PLATELET COUNT (AUTO) 145 /CMM (150-450); RDW COEFFICIENT OF VARIATION 15.1 (11.5-15.0); RED BLOOD CELL COUNT(AUTO) 3.42 MIL/uL (4.5-6.0); WHITE BLOOD COUNT (AUTO) 9.7 K/uL (4.3-11.0)
[2017-09-16] MEDS: BLOOD SUGAR DIAGNOSTIC 1 EACH STRIP VI SCH ×4 (07:39→21:15)
--- NOTE | 2017-09-16 08:23 | NUR ---
TD RN NOTES SPOKE WITH DR ALVAREZ AND NOTIFIED PATIENT CHEST PAIN UNRESOLVED, DIAPHORETIC AND TROPONINS RAISING PER MD SHILPI BURNS. LEFT MESSAGE WITH DR BURNS OFFICE.
--- NOTE | 2017-09-16 08:25 | NUR ---
TD RN NOTES PER DR BURNS ORDER STAT EKG, TROPONINS AND START PATIENT ON NITRO DRIP. NOTIFIED SOON INVESTIGATIONS MANAGER. AND PER BILINGUAL RECEPTIONIST TRANSFER TO ICU 256
[2017-09-16] MEDS ORDERED: NTG 50 MG/D5W250 ML BOTTL 50 MG/250 ML BTL IV ONE (08:30)
--- NOTE | 2017-09-16 08:43 | NUR ---
DAYRON RN NOTES REPORT GIVEN TO [facility] CAMPOS ICU.PATIENT TRANSFERED TO ICU PER ORDER.
--- NOTE | 2017-09-16 08:45 | NUR ---
PATIENT TRANSFERRED FROM [facility] TO INCREASING CHES PAINS. PATIENT SEEN AND TRASFER ORDERS GIVEN BY DR. BURNS. PATIENT AWAKE, ALERT AND ORIENTED. VERBALIZED 5/10 CP AT THIS TIME WITH WORST CP OF 10. O2 AT 3 L N/C -94%. SBP>10'S. TO START ON NTG GTT ONCE AVAILABLE-PHARMACY AWARE.
[2017-09-16] MEDS ORDERED: NTG 50 MG/D5W250 ML BOTTL 250 ML IV PRN (09:00)
[2017-09-16] MEDS ORDERED: CARVEDILOL 12.5 MG TABLET PO SCH (09:00)
[2017-09-16] MEDS ORDERED: FUROSEMIDE 20 MG/2 ML VIAL IV ONE (09:00)
--- NOTE | 2017-09-16 09:00 | NUR ---
TROPONIN -3.[address] BURNS. AWARE.
[2017-09-16] MEDS: NTG 50 MG/D5W250 ML BOTTL 250 ML IV PRN (09:17)
[2017-09-16] MEDS ORDERED: CARVEDILOL 12.5 MG TABLET PO ONE (09:30)
--- NOTE | 2017-09-16 09:30 | NUR ---
NTG GTT STARTED AT 25 MCG/MIN PER MD ORDERS TO TITRATE PER PROTOCOL. SBP>160.
[2017-09-16] MEDS: ASPIRIN 81 MG TAB.CHEW PO SCH (09:32)
--- NOTE | 2017-09-16 11:00 | NUR ---
PATIENT VERBALIZED FEELING BETTER. CHEST PAIN DOWN TO 2. NO SOB PRESENTED. SBP STABLE 140'S ON NTG GTT.
--- NOTE | 2017-09-16 12:30 | NUR ---
DR. BURNS AT BEDSIDE-EKG RESULT SEEN. INCREASED NTG GTT TO 50 MCG/MIN PER MD. STAT TROPONIN DRAWN. PATIENT TO KEEP NPO PER MD UNTIL SEEN BY GI . INSULIN COVERAGE PER SS HELD DUE TO NPO STATUS. BS 161.
--- NOTE | 2017-09-16 13:40 | NUR ---
DR. BURNS NOTIFIED OF TROPONIN 4.25. NO FUTHER ORDERS GIVEN BY .
--- NOTE | 2017-09-16 14:20 | NUR ---
patient needs higher level of care transfer for heart cath per cardiology. Spoke with Harper @ [facility] transfer [phone], no ICU bed available. Per - need another hosp that has ICU bed to accept pt. Addendum: 09/16/17 at 1906 by ORQUIDEA SIDHU RN Amended: Links added.
--- NOTE | 2017-09-16 14:45 | NUR ---
EPISODE OF 14 BEATS VTACH. PATIENT DENIES CHEST PAIN/PALPITATION. DR. BURNS MADE AWARE-MD ORDERED STAT TROPONIN.
--- NOTE | 2017-09-16 15:28 | NUR ---
referral sent to [facility] per Dr. John request. Spoke with Mary Grace [facility] transfer ctr [phone], working on accepting MD and financial clearance. Addendum: 09/16/17 at 1908 by ORQUIDEA SIDHU RN Amended: Links added.
--- NOTE | 2017-09-16 16:00 | NUR ---
MAINTAINED ON NPO PER MD'S ORDER.
[2017-09-16 16:16] LABS: BASOPHILS % (AUTO) 0.4 % (0.0-2.0); EOSINOPHILS # (AUTO) 0.1 /CMM (0.0-0.7); EOSINOPHILS % (AUTO) 1.5 % (0.0-6.0); HEMATOCRIT 24 % (39-51); LYMPHOCYTES # (AUTO) 0.9 /CMM (0.8-4.8); LYMPHOCYTES % (AUTO) 11.4 % (20.0-44.0); MEAN CORPUSCULAR HEMOGLOBIN 26 PG (26.0-33.0); MEAN CORPUSCULAR HGB CONC 34 g/dl (31.0-36.0); MEAN CORPUSCULAR VOLUME 77 fL (80-96); MONOCYTES # (AUTO) 0.9 /CMM (0.1-1.30); MONOCYTES % (AUTO) 10.9 % (2.0-12.0); NEUTROPHILS # (AUTO) 5.9 /CMM (1.8-8.9); NEUTROPHILS % (AUTO) 75.8 % (43.0-81.0); PLATELET COUNT (AUTO) 131 /CMM (150-450); RDW COEFFICIENT OF VARIATION 16.3 (11.5-15.0); RED BLOOD CELL COUNT(AUTO) 3.12 MIL/uL (4.5-6.0); WHITE BLOOD COUNT (AUTO) 7.8 K/uL (4.3-11.0)
--- NOTE | 2017-09-16 17:00 | NUR ---
PER DR. CHANCE-PATIENT MAY EAT DINNER-NPO POST MIDNIGHT FOR POSSIBLE HEART CATH IN AM.
[2017-09-16] MEDS ORDERED: CLOPIDOGREL BISULFATE 75 MG TABLET PO ONE (18:00)
--- NOTE | 2017-09-16 18:00 | NUR ---
FOLLOWED UP WITH PHARMACY REGARDING HEPARIN ORDERS-STILL AWAITING.
[2017-09-16] MEDS: INSULIN REGULAR, HUMAN 100 UNIT/ML 3 ML VIAL SQ PRN (18:15)
--- NOTE | 2017-09-16 18:35 | NUR ---
per Mary Grace at [facility], patient has been accepted - bed CV-ICU room#3008, accepting MD Dr. Marcial, nurse to call report [phone], CCT-manager of transportation arranged pecan picker at 12 midnight trip# [phone] [facility] [phone]. Nurse made aware. Addendum: 09/16/17 at 1912 by ORQUIDEA SIDHU RN Amended: Links added.
--- NOTE | 2017-09-16 19:00 | NUR ---
HEPARIN GTT FOR ACS/AMI PROTOCOL FAXED TO PHARMACY. PATIENT STATES LITTLE CHEST PAIN. REMAINS ON NTG GTT AT 50 MCG/MIN. BP STABLE. NO SIGNS OF ACTIVE BLEEDING NOTED.
--- NOTE | 2017-09-16 19:14 | NUR ---
patient does not want to transfer to [facility]- will talk to patient to discuss. Addendum: 09/16/17 at 1915 by ORQUIDEA SIDHU RN Amended: Links added.
[2017-09-16] MEDS ORDERED: HEPARIN SODIUM, PORCINE 5000 UNITS/1 ML VIAL IV ONE (19:30)
[2017-09-16] MEDS: HEPARIN INFUSION/D5W 500 ML IV PRN (19:46)
--- NOTE | 2017-09-16 20:00 | NUR ---
per Jewell Hahn, patient still refusing to be transferred to [facility] f/u in am with [facility] for bed. Transfer back agreement was already faxed to [facility] transfer ctr top case assembler Harper [phone] Addendum: 09/16/17 at 2108 by ORQUIDEA SIDHU RN Amended: Links added.
[2017-09-16] MEDS: ATORVASTATIN 40 MG TABLET PO SCH (21:06)
[2017-09-16] MEDS: CARVEDILOL 12.5 MG TABLET PO SCH (21:06)
[2017-09-16] MEDS: *INSULIN REGULAR(HUMULIN R)HUM 100 UNIT/ML VIAL SQ PRN (21:14)
--- NOTE | 2017-09-16 21:30 | NUR ---
EMBEDDED SOFTWARE ARCHITECT - EMBEDDED SOFTWARE ARCHITECT - REC'D REPORT FROM LINH CAMPOS. REC'D PT. SWEATY-DENIES PAIN AT PRESENT TIME. HEART MONITOR SHOWS SR/BBB/OCC. PVC'S. AT 21:22, PT.HAD 7 BEAT RUN OF VTACH/ASYMPTOMATIC. SBP'S IN TEENS. NTG GTT. INFUSING AT 50 MCG/MIN. HEPARIN GTT. ADM. 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 BOLUS ADM. FIRST - 6,100 UNITS/BOLUS ADM. HEPARIN GTT. STARTED AT 1200 UNITS/HR. PTT. ORDERED FOR 3AM. ALL AM LABS TO BE DRAWN AT THIS TIME. PT. IS ADAMANT ABOUT GOING TO [facility] OPER[facility] AT [facility]. 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 PT. MADE AWARE THAT HE IS GOING TO BE NPO AFTER MN. PT.VERBALIZED UNDERSTANDING. PT.IS ON O2/3L/NC W/O2 SATS >96%. TEMP=99.1 AX. ALL PULSES PALPABLE X 4 EXT. PIV'S X 2 HAVE ALL PORTS PATENT TO FLUSH. COMPLETE BEDBATH ADM. AT 2100. PT.IS INDEPENDANT W/VESNA CARE. PT. IS REFUSING ADULT DIAPER. AT 21:00 . SKIN INTACT. CONT. POC.
[2017-09-17] VITALS (52 sets, daily range): BP systolic 104–149; BP diastolic 32–97
--- NOTE | 2017-09-17 01:50 | NUR ---
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 I EXPLAINED TO RICK THAT THE PT. DOES NOT WANT TO GO TO [facility], THAT HIM & HIS FAMILY INSIST ON [facility]. I EXPLAINED THAT I WILL F/U W/HIM BY 7AM-7:30AM. JOSE WILL BE THE POKE IN AT [facility] AT CHANGE OF SHIFT. THEIR PHONE #[phone]. PT. REMAINS ON HEPARIN GTT. AT 1200 UNITS/HR & NTG GTT. AT 50 MCG/MIN. PT. DENIES ANY PAIN AT PRESENT. PT.IS CURRENTLY NPO & RN DID EXPLAIN TO PT.-NOTHING TO EAT AFTER MN. NO V-TACH NOTED, PT.IS SR/PVC'S & BBB. CONT.POC.
[2017-09-17 03:23] LABS: BASOPHILS % (AUTO) 0.6 % (0.0-2.0); EOSINOPHILS # (AUTO) 0.2 /CMM (0.0-0.7); EOSINOPHILS % (AUTO) 2.4 % (0.0-6.0); HEMATOCRIT 24 % (39-51); LYMPHOCYTES # (AUTO) 1.5 /CMM (0.8-4.8); LYMPHOCYTES % (AUTO) 20.9 % (20.0-44.0); MEAN CORPUSCULAR HEMOGLOBIN 26 PG (26.0-33.0); MEAN CORPUSCULAR HGB CONC 34 g/dl (31.0-36.0); MEAN CORPUSCULAR VOLUME 76 fL (80-96); MONOCYTES # (AUTO) 0.8 /CMM (0.1-1.30); MONOCYTES % (AUTO) 10.6 % (2.0-12.0); NEUTROPHILS # (AUTO) 4.6 /CMM (1.8-8.9); NEUTROPHILS % (AUTO) 65.5 % (43.0-81.0); PLATELET COUNT (AUTO) 130 /CMM (150-450); RDW COEFFICIENT OF VARIATION 15.2 (11.5-15.0); RED BLOOD CELL COUNT(AUTO) 3.12 MIL/uL (4.5-6.0); WHITE BLOOD COUNT (AUTO) 7.1 K/uL (4.3-11.0)
[2017-09-17 03:46] LABS: ALBUMIN 2.9 g/dL (3.4-5.0); BILIRUBIN,TOTAL 0.6 mg/dL (0.2-1.0); CALCIUM, SERUM 9.1 mg/dL (8.5-10.1); CREATININE 1.4 mg/dL (0.6-1.3); POTASSIUM 4.3 mmol/L (3.5-5.1); TOTAL PROTEIN, SERUM 6.5 g/dL (6.4-8.2)
[2017-09-17 03:54] LABS: INR 1.02 (0.87-1.13); PROTHROMBIN TIME 10.6 SECS (9.5-12.7)
[2017-09-17 03:57] LABS: TROPONIN I 2.663 ng/mL (0.00-0.056)
[2017-09-17] MEDS: MORPHINE SULFATE INJ 4 MG/ML DISP.SYRIN IV PRN ×3 (04:13→20:06)
[2017-09-17] MEDS ORDERED: NTG 50 MG/D5W250 ML BOTTL 250 ML IV ONE (04:22)
[2017-09-17] MEDS: NTG 50 MG/D5W250 ML BOTTL 250 ML IV PRN ×2 (04:30→16:29)
--- NOTE | 2017-09-17 07:00 | NUR ---
ICU INITIAL NOTE RECEIVED REPORT FROM BETH KUMAR, PT WAS RECEIVED ASLEEP, EASY TO AROUSE, ABLE TO FOLLOW COMMANDS, ABLE TO MOVE EXTREMITIES ON OWN, PT IS ON 3L NC, SATING WELL, NO S/S SOB OR RESP. DISTRESS NOTED AT THIS TIME, PT IS ON BEDSIDE MONITOR SHOWING SR W/ PVC'S, BBB, IN 80'S, PT C/O OF MILD CHEST PRESSURE BUT IS NOT GETTING WORSE, HAS BEEN THE SAME, PT HAS LCW ICD, PT HAS RAC #18G, L HAND #20G, RUNNING NITRO DRIP @ 50MCG/MIN, HEPARIN DRIP @1200 UNITS/HR, C/D/I/PATENT, FLUSHING WELL, NO S/S OF INFECTION/ INFILTRATION NOTED AT THIS TIME, NO S/S OF ACTIVE BLEEDING AT THIS TIME, LAST APTT 53, NEXT APTT @ 0900, PT USES URINAL, PT STILL REFUSING TRANSFER TO [facility], [facility] STILL HAS NO BED AT THIS TIME, ALL SAFETY MEASURES IN PLACE AT ALL TIMES, CALL LIGHT WITHIN EASY REACH, WILL MONITOR PT CLOSELY FOR CHANGES
--- NOTE | 2017-09-17 07:15 | NUR ---
LEASING CONSULTANT Todd Manzo & SAND CASTER APPRENTICE QUALITY MANAGEMENT COORDINATOR-OSEAS FROM [facility] PHONED AT 06:45 TO RECEIVE A STATUS UP - DATE ON PT. HER PHONE #[phone]. SHE STATED THAT SHE IS TRYING TO GET PT. IN TODAY & WILL PHONE BACK BEFORE 7AM. OSEAS DID PHONE BACK AT 07:10AM & STATED THAT [facility] CANNOT TAKE PT. TODAY. SAND CASTER APPRENTICE SCHEDULE & ICU ARE AT FULL MAX. IF SOMETHING WAS TO GO WRONG, ICU COULD NOT TAKE PT. PLZ READ PRIOR NOTE THAT [facility] DID PHONE LAST NIGHT & THEY DO HAVE A BED AVAILABLE, HOWEVER PT & FAMILY ARE REFUSING [facility] STILL. RN DID HAVE AN CZECH QA AUTOMATION ARCHITECT EXPLAIN SITUATION & HE STILL ADAMANTLY REFUSED [facility]. AMIODARONE GTT. IS INFUSING AT 0.5MG/HR. AND WILL BE DONE AT 09:30AM. COMPLETE BEDBATH WAS DONE AT 04:00 AM W/ORAL,[facility] & SKIN CARE ADM. CONT. POC.
--- NOTE | 2017-09-17 08:30 | NUR ---
ICU NOTE DR. MELENDEZ MADE ROUNDS, AWARE OF ALL LABS AND RESULTS, AWARE OF PENDING TRANSFER, ALL NEW ORDERS RECEIVED AND WILL BE CARRIED OUT, ALL QUESTIONS AND CONCERNS ANSWERED AT BEDSIDE DR. RICHARDSON MADE ROUNDS, AWARE OF ALL LABS AND RESULTS, AWARE OF PENDING TRANSFER, ALL NEW ORDERS RECEIVED AND WILL BE CARRIED OUT, ALL QUESTIONS AND CONCERNS ANSWERED AT BEDSIDE. PER MD OKAY TO GIVE AMIO BOLUS AND DRIP, IF PT SUSTAINS VTACH AND SYMPTOMATIC.
[2017-09-17] MEDS: BLOOD SUGAR DIAGNOSTIC 1 EACH STRIP VI SCH ×4 (08:49→21:29)
[2017-09-17] MEDS: INSULIN REGULAR, HUMAN 100 UNIT/ML 3 ML VIAL SQ PRN ×2 (08:50→12:32)
[2017-09-17] MEDS: CLOPIDOGREL BISULFATE 75 MG TABLET PO SCH (08:51)
[2017-09-17] MEDS: CARVEDILOL 12.5 MG TABLET PO SCH ×2 (08:51→21:07)
[2017-09-17] MEDS: ASPIRIN 81 MG TAB.CHEW PO SCH (08:51)
[2017-09-17 09:45] LABS: INR 0.98 (0.87-1.13); PROTHROMBIN TIME 10.2 SECS (9.5-12.7)
--- NOTE | 2017-09-17 10:06 | NUR ---
ICU NOTE- APPT 48, NO CHANGES TO HEPARIN
--- NOTE | 2017-09-17 12:07 | NUR ---
ICU NOTE- TRANSFUSING 1 UNIT PRBC AT THIS, EDUCATED PT IF HAVING ANY S/S OF REACTION TO NOTIFY ME, WILL REASSESS PER PROTOCOL
[2017-09-17] MEDS ORDERED: FUROSEMIDE 20 MG/2 ML VIAL IV PRN (12:30)
[2017-09-17] MEDS: HEPARIN INFUSION/D5W 500 ML IV PRN (12:32)
--- NOTE | 2017-09-17 14:55 | NUR ---
ICU NOTE- 1 UNITSW PRBC TRANSFUSED, VVS, NO REACTIONS NOTED
[2017-09-17] MEDS: DOCUSATE SODIUM 100 MG CAPSULE PO SCH (16:28)
[2017-09-17] MEDS: SUCRALFATE 1 G TABLET PO SCH ×2 (16:35→21:07)
--- NOTE | 2017-09-17 17:00 | NUR ---
ICU NOTE- DAUGHTER AT BEDSIDE ALL QUESTIONS AND CONCERNS ANSWERED
--- NOTE | 2017-09-17 19:30 | NUR ---
Received patient awake alert and oriented x 3.VS stable.SR with LBBB.O2 3L NC saturation 96%. Respiration even and unlabored.NTG drip and Heparin drip infusing via FILIPPO MIDLINE site intact. Encouraged to call for assistance with call light within easy reach.Denies any discomfort.
--- NOTE | 2017-09-17 20:10 | NUR ---
Patient complaints of lower back pain.Requested morphine.PRN morphine administered. Continue to monitor.
[2017-09-17] MEDS: ATORVASTATIN 40 MG TABLET PO SCH (21:07)
[2017-09-17] MEDS: *INSULIN REGULAR(HUMULIN R)HUM 100 UNIT/ML VIAL SQ PRN (21:28)
[2017-09-18] VITALS (44 sets, daily range): BP systolic 85–145; BP diastolic 38–79
[2017-09-18] MEDS ORDERED: NTG 50 MG/D5W250 ML BOTTL 250 ML IV ONE (03:54)
[2017-09-18] MEDS: NTG 50 MG/D5W250 ML BOTTL 250 ML IV PRN (03:58)
--- NOTE | 2017-09-18 06:30 | NUR ---
Patient resting.VS Stable.Bathed with complete linens changed.Complaints of pain to right shoulder, right neck and right flank.Managed with NGT drip titrated up to 125 mcg/min.Heparin drip still at 1200 units/hr.Will endorse to am shift RN to follow up with am PTT.PRN Zofran administered for nausea.Denies chest pain or sob.All needs met.
[2017-09-18 06:57] LABS: BASOPHILS % (AUTO) 0.3 % (0.0-2.0); EOSINOPHILS # (AUTO) 0.2 /CMM (0.0-0.7); EOSINOPHILS % (AUTO) 1.8 % (0.0-6.0); HEMATOCRIT 28 % (39-51); HEMOGLOBIN 9.3 g/dL (13.5-17.5); LYMPHOCYTES # (AUTO) 1.1 /CMM (0.8-4.8); LYMPHOCYTES % (AUTO) 12.2 % (20.0-44.0); MEAN CORPUSCULAR HEMOGLOBIN 27 PG (26.0-33.0); MEAN CORPUSCULAR HGB CONC 33 g/dl (31.0-36.0); MEAN CORPUSCULAR VOLUME 79 fL (80-96); MONOCYTES # (AUTO) 0.8 /CMM (0.1-1.30); MONOCYTES % (AUTO) 9.5 % (2.0-12.0); NEUTROPHILS # (AUTO) 6.7 /CMM (1.8-8.9); NEUTROPHILS % (AUTO) 76.2 % (43.0-81.0); PLATELET COUNT (AUTO) 128 /CMM (150-450); RDW COEFFICIENT OF VARIATION 16.7 (11.5-15.0); RED BLOOD CELL COUNT(AUTO) 3.51 MIL/uL (4.5-6.0); WHITE BLOOD COUNT (AUTO) 8.8 K/uL (4.3-11.0)
--- NOTE | 2017-09-18 07:00 | NUR ---
ICU INITIAL NOTE RECEIVED REPORT FROM ORQUIDEA, PT WAS RECEIVED ASLEEP, EASY TO AROUSE, ABLE TO FOLLOW COMMANDS, ABLE TO MOVE EXTREMITIES ON OWN, PT IS ON 3L NC, SATING WELL, NO S/S SOB OR RESP. DISTRESS NOTED AT THIS TIME, PT IS ON BEDSIDE MONITOR SHOWING SR W/ PVC'S, BBB, IN 80'S, PT C/O OF MILD CHEST PRESSURE BUT IS NOT GETTING WORSE, HAS BEEN THE SAME, PT HAS LCW ICD, PT HAS RAC #18G, L HAND #20G, FILIPPO MIDLINE #20G, RUNNING NITRO DRIP @ 125MCG/MIN, HEPARIN DRIP @1200 UNITS/HR, C/D/I/PATENT, FLUSHING WELL, NO S/S OF INFECTION/ INFILTRATION NOTED AT THIS TIME, NO S/S OF ACTIVE BLEEDING AT THIS TIME, PT USES URINAL, ALL SAFETY MEASURES IN PLACE AT ALL TIMES, CALL LIGHT WITHIN EASY REACH, WILL MONITOR PT CLOSELY FOR CHANGES
[2017-09-18 07:03] LABS: CALCIUM, SERUM 9.2 mg/dL (8.5-10.1); CREATININE 1.3 mg/dL (0.6-1.3); MAGNESIUM 1.9 mg/dL (1.8-2.4); POTASSIUM 4.8 mmol/L (3.5-5.1)
[2017-09-18] MEDS: CLOPIDOGREL BISULFATE 75 MG TABLET PO SCH (08:16)
[2017-09-18] MEDS: SUCRALFATE 1 G TABLET PO SCH ×4 (08:16→21:13)
[2017-09-18] MEDS: BLOOD SUGAR DIAGNOSTIC 1 EACH STRIP VI SCH ×4 (08:16→21:14)
[2017-09-18] MEDS: ASPIRIN 81 MG TAB.CHEW PO SCH (08:16)
[2017-09-18] MEDS: CARVEDILOL 12.5 MG TABLET PO SCH ×2 (08:17→21:14)
[2017-09-18] MEDS: PANTOPRAZOLE 40 MG VIAL IV SCH ×2 (08:17→17:28)
[2017-09-18] MEDS: DOCUSATE SODIUM 100 MG CAPSULE PO SCH ×2 (08:18→17:28)
[2017-09-18] MEDS: SENNOSIDES 8.6 MG TABLET PO SCH (08:18)
[2017-09-18] MEDS: HEPARIN INFUSION/D5W 500 ML IV PRN (08:19)
--- NOTE | 2017-09-18 08:44 | NUR ---
ICU NOTE- DR. WILLIAM MADE ROUNDS, AWARE OF ALL LABS AND RESULTS, ORDERED TO TITRATE NITRO DRIP OFF, PT HAS NO C/O OF CHEST PAIN AT THIS TIME.
[2017-09-18] MEDS: INSULIN REGULAR, HUMAN 100 UNIT/ML 3 ML VIAL SQ PRN ×2 (08:54→12:09)
--- NOTE | 2017-09-18 08:56 | NUR ---
ICU NOTE- APTT 40, INCREASED HEPARIN DRIP TO 1400UNITS/HR, ORDERS APTT IN 6 HRS
[2017-09-18] MEDS: MORPHINE SULFATE INJ 4 MG/ML DISP.SYRIN IV PRN ×2 (09:42→14:08)
--- NOTE | 2017-09-18 15:45 | NUR ---
icu note- aptt 61, no changes needed. heparin remains at 1400units/hr. will order aptt in am lab
--- NOTE | 2017-09-18 19:05 | NUR ---
COMPUTER APPLICATIONS INSTRUCTOR OPENING NOTES RECEIVED REPORT FROM NAHOMY CAMPOS. PATIENT A/A/O X4, ABLE TO MAKE NEEDS KNOWN. BREATHING EVEN & UNLABORED, TOLERATING O2 3L VIA NC. DENIES SOB OR DIFFICULTY BREATHING. ON TELE SINUS RHYTHM IN THE 80S. DENIES ANY CHEST PAIN OR DISCOMFORT @ THIS TIME. RIGHT UPPER ARM MIDLINE #20 INTACT & PATENT W/ DRESSING CDI & HEPARIN DRIP @ 1400UNITS/HR. LEFT HAND IV #20 INTACT & PATENT W/ DRESSING CDI, SALINE LOCKED. C/O BACK PAIN W/ PAIN MED TO BE GIVEN. PATIENT RESTING COMFORTABLY IN BED. CALL LIGHT WITHIN REACH. WILL CONTINUE TO MONITOR.
[2017-09-18] MEDS: ATORVASTATIN 40 MG TABLET PO SCH (21:13)
[2017-09-18] MEDS: *INSULIN REGULAR(HUMULIN R)HUM 100 UNIT/ML VIAL SQ PRN (21:16)
--- NOTE | 2017-09-18 22:50 | NUR ---
LAND MANAGEMENT SUPERVISOR NOTES REPORT AND PTS RECEIVED FROM ICU NURSE SETH, PTS REMAINS ON HEPARIN DRIP AT 1400 UNITS /28ML/HR IN PROGRESS , V/S STABLE AFEBRILE ,ON TELE A PACING ON THE MONITOR, WILL CONTINUE TO MONITOR
--- NOTE | 2017-09-18 22:50 | NUR ---
SHRIMP PICKER NOTES TRANSFERRED PATIENT TO [facility] 1ST FLOOR TO ROOM 108 W/ TELE STATUS. BEDSIDE REPORT GIVEN TO RAINA CAMPOS.
[2017-09-19] VITALS: BP_SYST 122; BP_DIAS 49; BP_DIAS 50
[2017-09-19 04:00] VITALS: BP 125/59
[2017-09-19] MEDS: HEPARIN INFUSION/D5W 500 ML IV PRN ×2 (04:38→23:58)
--- NOTE | 2017-09-19 07:04 | NUR ---
ASSISTANT IN NURSING NOTES PTS REMAINS ON HEPARIN DRIP ORDERED , AWAITING FOR APTT RESULT , WILL ENDORSE TO AHSAN FOR CONTINUITY OF CARE.
--- NOTE | 2017-09-19 07:49 | NUR ---
ANATOMIC PATHOLOGIST NOTES PATIENT IN BED , ALERT , ORIENTED XR . ON 3L NC NO SOB NOTED , ON TELE MONITOR SR 68 , PTS REMAINS ON HEPARIN DRIP AT 1400 UNITS /28ML/HR IN PROGRESS , ,ON TELE A PACING ON THE MONITOR, WILL CONTINUE TO MONITOR, BED IN LOWEST AND LOCKED POSITION , WILL CONT TO MONITOR CLOSELY
[2017-09-19 08:00] VITALS: BP 145/59
[2017-09-19] MEDS: SUCRALFATE 1 G TABLET PO SCH ×4 (08:22→22:19)
[2017-09-19] MEDS: PANTOPRAZOLE 40 MG VIAL IV SCH ×2 (08:22→16:22)
[2017-09-19] MEDS: CLOPIDOGREL BISULFATE 75 MG TABLET PO SCH (08:23)
[2017-09-19] MEDS: DOCUSATE SODIUM 100 MG CAPSULE PO SCH ×2 (08:23→16:22)
[2017-09-19] MEDS: SENNOSIDES 8.6 MG TABLET PO SCH (08:23)
[2017-09-19] MEDS: ASPIRIN 81 MG TAB.CHEW PO SCH (08:24)
[2017-09-19] MEDS: CARVEDILOL 12.5 MG TABLET PO SCH ×2 (08:24→20:23)
[2017-09-19] MEDS: BLOOD SUGAR DIAGNOSTIC 1 EACH STRIP VI SCH ×4 (08:31→22:20)
[2017-09-19] MEDS: INSULIN REGULAR, HUMAN 100 UNIT/ML 3 ML VIAL SQ PRN ×2 (10:01→12:50)
[2017-09-19 10:34] LABS: BASOPHILS % (AUTO) 0.4 % (0.0-2.0); EOSINOPHILS # (AUTO) 0.2 /CMM (0.0-0.7); HEMATOCRIT 29 % (39-51); HEMOGLOBIN 9.4 g/dL (13.5-17.5); LYMPHOCYTES # (AUTO) 1.4 /CMM (0.8-4.8); LYMPHOCYTES % (AUTO) 18.5 % (20.0-44.0); MEAN CORPUSCULAR HEMOGLOBIN 26 PG (26.0-33.0); MEAN CORPUSCULAR HGB CONC 33 g/dl (31.0-36.0); MEAN CORPUSCULAR VOLUME 79 fL (80-96); MONOCYTES # (AUTO) 0.9 /CMM (0.1-1.30); MONOCYTES % (AUTO) 12.6 % (2.0-12.0); NEUTROPHILS # (AUTO) 4.9 /CMM (1.8-8.9); NEUTROPHILS % (AUTO) 66.5 % (43.0-81.0); PLATELET COUNT (AUTO) 133 /CMM (150-450); RDW COEFFICIENT OF VARIATION 17.2 (11.5-15.0); RED BLOOD CELL COUNT(AUTO) 3.63 MIL/uL (4.5-6.0); WHITE BLOOD COUNT (AUTO) 7.4 K/uL (4.3-11.0)
[2017-09-19] MEDS: MORPHINE SULFATE INJ 4 MG/ML DISP.SYRIN IV PRN ×2 (10:35→16:32)
--- NOTE | 2017-09-19 10:39 | NUR ---
ENGLISH TUTOR NOTE C\O PAIN IN CHEST BACK AND ARM BP 148/67 HR 78 SAT 95% MORPHINE 1 MG IVP GIVEN ORDERED ,WILL F\U
[2017-09-19 10:55] LABS: CALCIUM, SERUM 9.2 mg/dL (8.5-10.1); CREATININE 1.3 mg/dL (0.6-1.3); POTASSIUM 4.2 mmol/L (3.5-5.1)
[2017-09-19 12:00] VITALS: BP 130/61
--- NOTE | 2017-09-19 13:00 | NUR ---
EXECUTIVE RELATIONS SPECIALIST NOTE HAVING LUNCH , ABLE TO EAT SELF
--- NOTE | 2017-09-19 15:55 | NUR ---
HAND PATTERN MARKER NOTE PER DR MILIAN NPO AFTER MID NIGHT , AWARE THAT PER PATIENT STATEMENT STOOL IS BLACKISH COLOR , STSTED ITS OK
[2017-09-19 16:00] VITALS: BP 143/64
--- NOTE | 2017-09-19 17:25 | NUR ---
SENIOR PROJECT COORDINATOR NOTE REFUSED COVERAGE WITH INSULIN, EXPLAINED OF IMPORTANCE, STILL REFUSED, WILL F\U
--- NOTE | 2017-09-19 18:28 | NUR ---
TREE FRUIT AND NUT CROPS FARMER NOTE HAVING DINNER, C\O STILL HAS PAIN IN CHEST AND BACK MORPHINE WAS GIVEN AT 1740 STILL NOT HELPING 1MG , CALLED TO DR MELENDEZ , LEFT A MASSAGE WITH EXCHANGE SERVICE ,WILL F\U Addendum: 09/19/17 at 1841 by AHSAN SOTO RN PER DR TARYN MARTELL HEPARIN DRIP TILL TRANSFER TO [facility] FOR CARDIAC CATH ,
--- NOTE | 2017-09-19 19:13 | NUR ---
SCHEDULING CLERK NOTE SPOKE WITH DR MARIE NOTIFIED THAT PAIN ON BACK AND CHEST NOR GET BETTER BY GIVING 1 MG OF MORPHINE 1MG, ORDERED 2 MG MORPHINE IV ,ORDER CARRIED OUT
--- NOTE | 2017-09-19 19:45 | NUR ---
RN OPENING NOTE RECEIVING PATIENT IN THE BED, ALERT/ORIENTED, NO ACUTE DISTRESS NOTED, ONGOING HEPARIN DRIP ON THE LEFT UPPER ARM 1400 ML/HR, PTT 52, NEXT PTT SCHEDULED AT 6AM, BED IN THE LOW POSITION, CALL LIGHT WITHIN REACH, BELONGINGS NEXT TO THE PATIENT, WILL CONTINUE TO MONITOR
[2017-09-19 20:00] VITALS: BP 143/77
[2017-09-19] MEDS: MORPHINE SULFATE INJ 2 MG/ML DISP.SYRIN IV PRN (20:03)
--- NOTE | 2017-09-19 20:06 | NUR ---
RN NOTE CHARGE NURSE OVERRIDED MORPHINE 4MG (WHAT WAS AVAILABLE IN THE [facility]), ADMINISTER 2 MG, WASTED 2 MG, WAS NOT ABLE TO SCAN BC UNV BY PHARMACY
[2017-09-19] MEDS: ATORVASTATIN 40 MG TABLET PO SCH (22:19)
[2017-09-19] MEDS: *INSULIN REGULAR(HUMULIN R)HUM 100 UNIT/ML VIAL SQ PRN (22:29)
[2017-09-20] VITALS: BP 143/77
[2017-09-20] MEDS ORDERED: MORPHINE SULFATE INJ 4 MG/ML DISP.SYRIN ONE (00:22)
[2017-09-20] MEDS: MORPHINE SULFATE INJ 2 MG/ML DISP.SYRIN IV PRN ×2 (00:25→06:47)
--- NOTE | 2017-09-20 00:25 | NUR ---
RN NOTE CHARGE NURSE [place] OVERRIDED MORPHINE 4MG, ADMINISTERED 2MG ONLY, 2 MG WAS WASTED
[2017-09-20 04:00] VITALS: BP 143/67
--- NOTE | 2017-09-20 06:48 | NUR ---
rn note charge nurse theo overrided morphine 4mg, administered 2 mg, was not able to scan it
[2017-09-20] MEDS: SUCRALFATE 1 G TABLET PO SCH ×4 (07:30→21:50)
--- NOTE | 2017-09-20 07:34 | NUR ---
RN CLOSING NOTE PATIENT IS IN THE BED, ALERT/ORIENTED, NO DISTRESS NOTED, NO S/S OF BLEEDING NOTED, ON HEPARIN DRIPS AT 28ML/HR, PTT WAS DRAWN AT 7AM, ENDORSE NEXT SHIFT TO FOLLOW UP ON THE PTT AND ADJUST THE DRIP PER PROTOCOL, PATIENT IS NPO SINCE MIDNIGHT, CALL LIGHT WITHIN REACH; BED IN THE LOW POSITION
--- NOTE | 2017-09-20 07:56 | NUR ---
AGILE SCRUM MASTER NOTES RECEIVED PT ON BED, A/0X4. ON NASAL CANNULA TOLERATING WELL. ON NPO STILL. ON HEPARIN DRIP. SIDE RAILS UP. HEAD OF BED ELEVATED. CALL LIGHT IS PLACED WITHIN REACH. WILL CONTINUE TO MONITOR PT CLOSELY.
[2017-09-20 08:00] VITALS: BP_SYST 131; BP_SYST 144; BP_DIAS 67; BP_DIAS 77
[2017-09-20] MEDS: ASPIRIN 81 MG TAB.CHEW PO SCH (08:12)
[2017-09-20] MEDS: DOCUSATE SODIUM 100 MG CAPSULE PO SCH ×2 (08:12→16:36)
[2017-09-20] MEDS: CARVEDILOL 12.5 MG TABLET PO SCH ×2 (08:13→21:50)
[2017-09-20] MEDS: CLOPIDOGREL BISULFATE 75 MG TABLET PO SCH (08:14)
[2017-09-20] MEDS: SENNOSIDES 8.6 MG TABLET PO SCH (08:14)
[2017-09-20] MEDS: PANTOPRAZOLE 40 MG VIAL IV SCH ×2 (08:23→16:36)
[2017-09-20] MEDS: BLOOD SUGAR DIAGNOSTIC 1 EACH STRIP VI SCH ×4 (08:23→22:34)
[2017-09-20] MEDS: *INSULIN REGULAR(HUMULIN R)HUM 100 UNIT/ML VIAL SQ PRN ×4 (08:25→22:35)
[2017-09-20] MEDS: MORPHINE SULFATE INJ 4 MG/ML DISP.SYRIN IV PRN ×3 (11:55→21:51)
[2017-09-20 12:00] VITALS: BP 131/67
[2017-09-20 16:00] VITALS: BP 144/79
--- NOTE | 2017-09-20 19:10 | NUR ---
SEWER HAND OPENING NOTES RECEIVED REPORT FROM RICK CAMPOS. PATIENT A/A/O X4, ABLE TO MAKE NEEDS KNOWN. BREATHING EVEN & UNLABORED, ON ROOM AIR. DENIES SOB OR DIFFICULTY BREATHING. ON TELE SINUS RHYTHM IN THE 80S. DENIES ANY CHEST PAIN OR DISCOMFORT @ THIS TIME. RIGHT UPPER ARM MIDLINE #20 INTACT & PATENT W/ DRESSING CDI, SALINE LOCKED. LEFT HAND IV #20 INTACT & PATENT W/ DRESSING CDI, SALINE LOCKED. DENIES ANY PAIN OR DISCOMFORT @ THIS TIME. PATIENT RESTING COMFORTABLY IN BED. CALL LIGHT & URINAL WITHIN REACH. WILL CONTINUE TO MONITOR.
--- NOTE | 2017-09-20 19:43 | NUR ---
NUCLEAR REACTOR ENGINEER NOTES PROVIDED COMFORT. NO ACUTE CHANGES NOTED DURING THE SHIFT. DUE MEDS GIVEN. ENDORSED TO THE PM NURSE FOR CONTINUITY OF CARE.
[2017-09-20 20:00] VITALS: BP 148/68
[2017-09-20] MEDS: ATORVASTATIN 40 MG TABLET PO SCH (21:50)
[2017-09-21] VITALS: BP 139/67
[2017-09-21] MEDS: MORPHINE SULFATE INJ 4 MG/ML DISP.SYRIN IV PRN ×3 (02:16→08:13)
[2017-09-21 04:00] VITALS: BP 159/74
[2017-09-21] MEDS: SUCRALFATE 1 G TABLET PO SCH (07:30)
[2017-09-21 08:00] VITALS: BP_SYST 151; BP_DIAS 64; BP_DIAS 74
--- NOTE | 2017-09-21 08:00 | NUR ---
CHIEF CONSOLE OPERATOR NOTES RECEIVED PT ON BED, A/0X4. ON NASAL ON RA NO SON NOTED AT THIS TIME . ON NPO STILL. O. SIDE RAILS UP. HEAD OF BED ELEVATED. CALL LIGHT IS PLACED WITHIN REACH. WILL CONTINUE TO MONITOR PT CLOSELY. ON TELE MONITOR SR , PLAN OF CARE DISCUSSED WITH PATIENT NPO FOR CATH CARDIAC AT 2 PM , LT HAND AND RT UPPER ARM IN PLVA C\O PAIN IN BACK 2 MG OF MORPHINE WILL BE GIVEN
[2017-09-21] MEDS: PANTOPRAZOLE 40 MG VIAL IV SCH (08:07)
[2017-09-21] MEDS: BLOOD SUGAR DIAGNOSTIC 1 EACH STRIP VI SCH (08:16)
[2017-09-21] MEDS: ASPIRIN 81 MG TAB.CHEW PO SCH ×2 (08:20→10:34)
[2017-09-21] MEDS: CLOPIDOGREL BISULFATE 75 MG TABLET PO SCH ×2 (08:20→10:34)
[2017-09-21] MEDS: SENNOSIDES 8.6 MG TABLET PO SCH (08:20)
[2017-09-21] MEDS: DOCUSATE SODIUM 100 MG CAPSULE PO SCH ×2 (08:20→10:35)
[2017-09-21 10:35] VITALS: BP 151/64
[2017-09-21] MEDS: CARVEDILOL 12.5 MG TABLET PO SCH (10:35)
--- NOTE | 2017-09-21 11:19 | NUR ---
ACID CUTTER NOTE DR SOMMERS AT BEDSIDE, CARDIAC CATH IS CANCELED ,PATIENT WANT TO GO AMA ,SIGHED FORM , OK TO [facility] , CHARGE NURSE CALLED ,STATED THAT COMING SOON TO SURFACE ROOM SHOP OPTICIAN PATIENT Addendum: 09/21/17 at 1528 by AHSAN SOTO RN DAUGHTER WILL COME TO SURFACE ROOM SHOP OPTICIAN PATIENT SOON
--- NOTE | 2017-09-21 11:43 | NUR ---
BRAND MGR NOTE TELE REMOVED AND RT UPPER ARM MID LINE REMOVED , EXPLAINED TO F\U WITH PRIMARY CARE DOCTOR AND PATIENT GO AMA , EXPAND TO F\U FOR CARDIAC CATH AND FOLLOW UP WITH PRIMARY CARE DOCTOR ,DAUGHTER AT BEDSIDE ,NO BLEEDING OR REDNESS FROM REMOVING HL RT UPPER ARM AND LT HAND , PER HYPERTRICHOLOGIST NO NEED APPOINTMENT IN CLINIC FOR FOR HEART FAILURE DX, ALSO TAKEN TO LOBBY WITH STABLE CONDITION ON W\C, DR OROSCO NOTIFIED STATED THAT THAT INFORMED DR MELENDEZ
[2017-09-21 11:46] LABS: BASOPHILS % (AUTO) 0.4 % (0.0-2.0); EOSINOPHILS # (AUTO) 0.2 /CMM (0.0-0.7); EOSINOPHILS % (AUTO) 2.2 % (0.0-6.0); HEMATOCRIT 32 % (39-51); HEMOGLOBIN 10.7 g/dL (13.5-17.5); LYMPHOCYTES # (AUTO) 1.3 /CMM (0.8-4.8); LYMPHOCYTES % (AUTO) 16.8 % (20.0-44.0); MEAN CORPUSCULAR HEMOGLOBIN 26 PG (26.0-33.0); MEAN CORPUSCULAR HGB CONC 34 g/dl (31.0-36.0); MEAN CORPUSCULAR VOLUME 78 fL (80-96); MONOCYTES # (AUTO) 0.6 /CMM (0.1-1.30); MONOCYTES % (AUTO) 8.1 % (2.0-12.0); NEUTROPHILS # (AUTO) 5.4 /CMM (1.8-8.9); NEUTROPHILS % (AUTO) 72.5 % (43.0-81.0); PLATELET COUNT (AUTO) 149 /CMM (150-450); RDW COEFFICIENT OF VARIATION 17.1 (11.5-15.0); RED BLOOD CELL COUNT(AUTO) 4.08 MIL/uL (4.5-6.0); WHITE BLOOD COUNT (AUTO) 7.5 K/uL (4.3-11.0)
[2017-09-21 11:59] LABS: CALCIUM, SERUM 9.7 mg/dL (8.5-10.1); CREATININE 1.3 mg/dL (0.6-1.3); POTASSIUM 4.3 mmol/L (3.5-5.1)
--- NOTE | 2017-09-21 12:00 | NUR ---
MICRO PALEONTOLOGIST NOTE SPOKE WITH DR MELENDEZ NOTIFIED THAT PATIENT WENT HOME AMA
[2017-09-21 12:05] LABS: ALBUMIN 3.1 g/dL (3.4-5.0); BILIRUBIN,TOTAL 0.5 mg/dL (0.2-1.0); TOTAL PROTEIN, SERUM 7.2 g/dL (6.4-8.2)
--- NOTE | 2017-09-21 14:43 | NUR ---
CERAMIC ENGINEERING PROFESSOR NOTE DR MELENDEZ JUST CALLED ,GIVE PX, UNABLE TO LEAVE A MESSAGE ,WILL F\U
--- NOTE | 2017-09-21 15:30 | NUR ---
PRASHANTH SILVA DAUGHTER STEPHANIA CAME AND PROFILING MACHINE OPERATOR PX FOR HER DAD
== END 2017-09-21 11:49 | disposition left against medical advice (07) | DRG 280 ==
LOC: ER 10:22 → TRANSITION 12:32 → TELE1 15:44 → TELE-TD 17:49 → ICU 09-16 08:51 → TELE-TD 09-18 22:40 → TELE1 09-19 00:14
PROVIDERS: ADMIT Internal Medicine; ATTEND Internal Medicine
PROC: 30233N1 Transfusion of Nonautologous Red Blood Cells into Peripheral Vein, Percutaneous Approach (ICD-10-PCS; principal; 2017-09-15)
PROC: 05H533Z Insertion of Infusion Device into Right Subclavian Vein, Percutaneous Approach (ICD-10-PCS; 2017-09-17)
DX: I13.0 Hypertensive heart and chronic kidney disease with heart failure and stage 1 through stage 4 chronic kidney disease, or unspecified chronic kidney disease (principal); I21.A1 Myocardial infarction type 2; N17.0 Acute kidney failure with tubular necrosis; D62 Acute posthemorrhagic anemia; D69.6 Thrombocytopenia, unspecified; E11.22 Type 2 diabetes mellitus with diabetic chronic kidney disease; E11.51 Type 2 diabetes mellitus with diabetic peripheral angiopathy without gangrene; I50.23 Acute on chronic systolic (congestive) heart failure; E11.65 Type 2 diabetes mellitus with hyperglycemia; I25.10 Atherosclerotic heart disease of native coronary artery without angina pectoris; I25.5 Ischemic cardiomyopathy; I25.2 Old myocardial infarction; N18.9 Chronic kidney disease, unspecified; Z79.01 Long term (current) use of anticoagulants; Z79.84 Long term (current) use of oral hypoglycemic drugs; Z95.810 Presence of automatic (implantable) cardiac defibrillator; J44.9 Chronic obstructive pulmonary disease, unspecified; Z86.718 Personal history of other venous thrombosis and embolism; Z95.1 Presence of aortocoronary bypass graft; F17.210 Nicotine dependence, cigarettes, uncomplicated; Z86.711 Personal history of pulmonary embolism; K59.00 Constipation, unspecified; Z90.49 Acquired absence of other specified parts of digestive tract; Z98.61 Coronary angioplasty status; Z79.899 Other long term (current) drug therapy; R93.5 Abnormal findings on diagnostic imaging of other abdominal regions, including retroperitoneum
CPT/HCPCS: 36415; 71045-TC; 76770-TC; 80048-TC; 80053-TC; 80061-TC; 80076-TC; 81000-TC; 82962-TC; 83735-TC; 83880; 84100-TC; 84484-TC; 85025-TC; 85610-TC; 85730-TC; 86850-TC; 86921-TC; 87086-TC; 93970-TC; A4606; C9113; J1644; J1815; J1940; J2270; J2405; J3490; J7050; P9016-BL; Q9967; Z7610